=== PATIENT | female | born 1955 | race Caucasian/White ===

== ENCOUNTER → 2016-12-07 | Outpatient (CLI) | payer OTHER ==
--- NOTE | 2016-12-07 16:39 | BD ---
EXAMINATION TYPE: MG DEXA axial skeleton. DATE OF EXAM: 12/07/2016 COMPARISON: NONE CLINICAL HISTORY: 61-year-old female postmenopausal screening Height: 64 Weight: 282.7 FRAX RISK QUESTIONS: Alcohol (3 or more units per day): no Family History (Parent hip fracture): no Glucocorticoids (More than 3mos): no (Ex: prednisone, prednisolone, methylprednisolone, dexamethasone, and hydrocortisone). History of Fracture in Adulthood: yes Secondary Osteoporosis: 1. Type 1 Diabetes: no 2. Hyperthyroidism: no 3. Menopause before 45: yes 4. Malnutrition: no 5. Chronic liver disease: no Rheumatoid Arthritis: no Current Tobacco Use: no RISK FACTORS HISTORY OF: Hip Fracture (Right/Left): no Spine Fracture: no History of Wrist Fracture: no Surgery to Spine/Hip(right/left)/Wrist (right/left): no Family History of Osteoporosis: no Active: yes Diet low in dairy products/other sources of calcium: no Postmenopausal woman: hysterectomy age 30 Lost more than 2 inches in height since high school: no Frequent falls: no Poor Health: no Hyperparathyroidism: no Adrenal Insufficiency: no MEDICATIONS: Lipitor, acid reflux med Additional History: EXAM MEASUREMENTS: Bone mineral densitometry was performed using the [employer]. Bone mineral density as measured about the Lumbar spine is: ----- L1-L4(G/cm2): 1.195 T Score Values are as follows: ----- L2: -0.8 ----- L3: 0.3 ----- L4: 0.7 ----- L1-L4: 0.1 Bone mineral density has: increased 1.1 % since study of: 05.26.2013 Bone mineral density about the R hip (g/cm2): 0.966 Bone mineral density about the L hip (g/cm2): 1.066 T Score values are as follows: -----R Neck: -0.5 -----L Neck: -0.2 -----R Total: 0.2 -----L Total: 0.4 Bone mineral density has: increased1.0 % since study of: 13 IMPRESSION: Normal (Values between +1 and -1 indicate normal bone mass). Consider repeating this study in 5 year s or sooner if there is some new clinical indication. NOTE: T-SCORE=SD OF THE YOUNG ADULT MEAN.
--- NOTE | 2016-12-08 09:24 | MM ---
Reason for exam: screening (asymptomatic). Last mammogram was performed 1 year and 10 months ago. History: Patient is postmenopausal and is nulliparous. Family history of premenopausal breast cancer in sister at age 50. Physical Findings: A clinical breast exam by your physician is recommended on an annual basis and results should be correlated with mammographic findings. MG Screening Mammo w CAD Bilateral CC and MLO view(s) were taken. Prior study comparison: February 20, 2015, bilateral MG screening mammo w CAD. June 05, 2013, bilateral digital screening mammo w/CAD. The breast tissue is almost entirely fat. Benign calcifications. No significant changes when compared with prior studies. ASSESSMENT: Benign, BI-RAD 2 RECOMMENDATION: Routine screening mammogram of both breasts in 1 year.
== END | disposition home or self-care (01) ==
LOC: RADMAMWWP 14:32
PROVIDERS: ATTEND Family Medicine
DX: Z12.31 Encounter for screening mammogram for malignant neoplasm of breast (principal); Z78.0 Asymptomatic menopausal state
CPT/HCPCS: 77080; G0202

== ENCOUNTER → 2018-05-12 | Outpatient (CLI) | payer MEDICARE, OTHER ==
--- NOTE | 2018-05-15 11:46 | MM ---
Reason for exam: screening (asymptomatic). Last mammogram was performed 1 year and 5 months ago. History: Patient is postmenopausal and is nulliparous. Family history of premenopausal breast cancer in sister at age 50. Physical Findings: A clinical breast exam by your physician is recommended on an annual basis and results should be correlated with mammographic findings. MG 3D Screening Mammo W/Cad Bilateral CC, MLO, and XCCL view(s) were taken. Prior study comparison: December 07, 2016, bilateral MG screening mammo w CAD. February 20, 2015, bilateral MG screening mammo w CAD. There are scattered fibroglandular densities. Benign appearing bilateral calcifications. No significant changes when compared with prior studies. ASSESSMENT: Benign, BI-RAD 2 RECOMMENDATION: Routine screening mammogram of both breasts in 1 year.
== END | disposition home or self-care (01) ==
LOC: RADMAMWWP 07:14
PROVIDERS: ATTEND Family Medicine
DX: Z12.31 Encounter for screening mammogram for malignant neoplasm of breast (principal)
CPT/HCPCS: 77063; 77067

== ENCOUNTER → 2019-08-24 | Outpatient (CLI) | payer MEDICARE, OTHER ==
--- NOTE | 2019-08-24 13:46 | MM ---
Reason for exam: screening (asymptomatic). Last mammogram was performed 1 year and 3 months ago. History: Patient is postmenopausal and is nulliparous. Family history of premenopausal breast cancer in sister at age 50. Physical Findings: A clinical breast exam by your physician is recommended on an annual basis and results should be correlated with mammographic findings. MG 3D Screening Mammo W/Cad Bilateral CC, MLO, and XCCL view(s) were taken. Prior study comparison: May 12, 2018, bilateral MG 3d screening mammo w/cad. December 07, 2016, bilateral MG screening mammo w CAD. There are scattered fibroglandular densities. Benign appearing bilateral calcifications. No significant changes when compared with prior studies. ASSESSMENT: Benign, BI-RAD 2 RECOMMENDATION: Routine screening mammogram of both breasts in 1 year.
== END | disposition home or self-care (01) ==
LOC: RADMAMWWP 07:44
PROVIDERS: ATTEND Family Medicine
DX: Z12.31 Encounter for screening mammogram for malignant neoplasm of breast (principal)
CPT/HCPCS: 77063; 77067

== ENCOUNTER → 2020-08-28 | Outpatient (CLI) | payer MEDICARE ==
--- NOTE | 2020-09-01 11:20 | MM ---
Reason for exam: screening (asymptomatic). Last mammogram was performed 1 year ago. History: Patient is postmenopausal and is nulliparous. Family history of premenopausal breast cancer in sister at age 50. Physical Findings: A clinical breast exam by your physician is recommended on an annual basis and results should be correlated with mammographic findings. MG 3D Screening Mammo W/Cad Bilateral CC and MLO view(s) were taken. Prior study comparison: August 24, 2019, bilateral MG 3d screening mammo w/cad. May 12, 2018, bilateral MG 3d screening mammo w/cad. There are scattered fibroglandular densities. No significant changes when compared with prior studies. ASSESSMENT: Benign, BI-RAD 2 RECOMMENDATION: Routine screening mammogram of both breasts in 1 year.
== END | disposition home or self-care (01) ==
LOC: RADMAMWWP 07:45
PROVIDERS: ATTEND Family Medicine
DX: Z12.31 Encounter for screening mammogram for malignant neoplasm of breast (principal)
CPT/HCPCS: 77063; 77067

== ENCOUNTER → 2022-04-21 | Outpatient (CLI) | payer MEDICARE ==
--- NOTE | 2022-04-22 08:52 | MM ---
Reason for Exam: Screening (asymptomatic). Last mammogram was performed 1 year(s) and 8 month(s) ago. Patient History: Menarche at age 11. Patient has no children. Left ovary removed at age 30. Right ovary removed at age 30. Hysterectomy at age 30. Postmenopausal. Sister had breast cancer, age 50. Risk Values: Veronica 5 year model risk: 3.4%. NCI Lifetime model risk: 10.2%. Prior Study Comparison: 05/12/2018 Bilateral Screening Mammogram, [facility]. 08/24/2019 Bilateral Screening Mammogram, [facility]. 08/28/2020 Bilateral Screening Mammogram, [facility]. Tissue Density: There are scattered fibroglandular densities. Findings: Analyzed By CAD. There is no suspicious group of microcalcifications or new suspicious mass in either breast. Benign-appearing bilateral calcifications. No significant change from prior exams. Overall Assessment: Benign, BI-RAD 2 Management: Screening Mammogram of both breasts in 1 year. A clinical breast exam by your physician is recommended on an annual basis and results should be correlated with mammographic findings. Electronically signed and approved by: Maikel Harry D.O.
== END | disposition home or self-care (01) ==
LOC: RADMAMWWP 07:52
PROVIDERS: ATTEND Family Medicine
DX: Z12.31 Encounter for screening mammogram for malignant neoplasm of breast (principal); Z78.0 Asymptomatic menopausal state; Z80.3 Family history of malignant neoplasm of breast; Z90.721 Acquired absence of ovaries, unilateral
CPT/HCPCS: 77063; 77067

== ENCOUNTER → 2023-05-16 | Outpatient (CLI) | payer MEDICARE ==
--- NOTE | 2023-05-17 20:36 | MM ---
Reason for Exam: Screening (asymptomatic). Last mammogram was performed 1 year(s) and 1 month(s) ago. Patient History: Menarche at age 11. Patient has no children. Left ovary removed at age 30. Right ovary removed at age 30. Hysterectomy at age 30. Postmenopausal. Sister had breast cancer, age 50. Risk Values: Veronica 5 year model risk: 3.4%. NCI Lifetime model risk: 9.7%. Prior Study Comparison: 08/24/2019 Bilateral Screening Mammogram, [facility]. 08/28/2020 Bilateral Screening Mammogram, [facility]. 04/21/2022 Bilateral MG 3D screening mammo w/cad, [facility]. Tissue Density: The breast tissue is almost entirely fat. Findings: Analyzed By CAD. There is no suspicious group of microcalcifications or new suspicious mass in either breast. Overall Assessment: Negative, BI-RAD 1 Management: Screening Mammogram of both breasts in 1 year. See note below in regards to patient's increased 5 year Veronica score. Patient should continue monthly self-breast exams. A clinical breast exam by your physician is recommended on an annual basis. This exam should not preclude additional follow-up of suspicious palpable abnormalities. Note on Veronica scores and lifetime risk: 1. A Veronica score greater than 3% is considered moderate risk. If this is the case, consider specialist referral to assess eligibility for a risk reducing agent. 2. If overall lifetime risk for the development of breast cancer is 20% or higher, the patient may qualify for future screening with alternating mammogram and breast MRI. Electronically signed and approved by: Dino Villalta M.D. Radiologist
== END | disposition home or self-care (01) ==
LOC: RADMAMWWP 12:59
PROVIDERS: ATTEND Family Medicine
DX: Z12.31 Encounter for screening mammogram for malignant neoplasm of breast (principal); Z78.0 Asymptomatic menopausal state; Z80.3 Family history of malignant neoplasm of breast
CPT/HCPCS: 77063; 77067

== ENCOUNTER 2024-02-27 12:28 | Emergency (ER) | payer MEDICARE ==
[2024-02-27] MEDS: SODIUM CHLORIDE 0.9% 1,000 ML IV STA ×2 (13:37→16:57)
--- NOTE | 2024-02-27 13:48 | ED ---
General Adult HPI - General Chief complaint: Recheck/Abnormal Lab/Rx Stated complaint: Abnormal CT-sent by Dr Tan Seen by Provider: 02/27/24 13:15 Source: patient, RN notes reviewed, old records reviewed Mode of arrival: ambulatory Limitations: no limitations - History of Present Illness Initial comments: 68-year-old female who presents emergency department complaining of jaundice and skin itching. Patient has noticed bright yellow darker urine for the past month. For the past 7 to 10 days she has noticed her skin itching and then over the past 4 to 6 days she has noticed her eyes turning yellow and her skin becoming more yellow. Denies any abdominal pain over this period of time. Is a history of cholecystectomy. History of hyperlipidemia. Denies abdominal pain over this period of time. Denies chest pain, shortness of breath. Denies nausea or vomiting or diarrhea. Has no other acute complaints. Received workup with her PCP today including CT imaging of the abdomen pelvis as well as labs. Labs have not returned however she was contacted by her doctor, Dr. Decker who instructed to come to the emergency department over concern for biliary duct dilation and possible obstruction. Cholecystectomy was done many years ago. - Related Data Home Medications Medication Instructions Recorded Confirmed No Known Home Medications 02/27/24 02/27/24 Allergies Allergy/AdvReac Type Severity Reaction Status Date / Time Penicillins Allergy Unknown Verified 02/27/24 13:44 Childhood Review of Systems ROS Statement: Those systems with pertinent positive or pertinent negative responses have been documented in the HPI. Review of Systems: CONST: Denies fever EYES: Denies blurry vision ENT: Denies nasal congestion C/V: Denies Chest pain RESP: Denies shortness of breath GI: Denies abdominal pain : Denies dysuria SKIN: Endorses yellow skin, yellow eyes MSK: Denies joint pain. NEURO: Denies headache ROS Other: All systems not noted in ROS Statement are negative. Past Medical History Past Medical History: No Reported History History of Any Multi-Drug Resistant Organisms: None Reported Past Surgical History: Cholecystectomy, Hysterectomy, Orthopedic Surgery Additional Past Surgical History / Comment(s): left shoulder, right kneee Past Psychological History: No Psychological Hx Reported Smoking Status: Never smoker Past Alcohol Use History: None Reported Past Drug Use History: None Reported General Exam - General Exam Comments Initial Comments: General: Appears in no acute distress. HEAD: Normal with no signs of head trauma. EYES: Scleral icterus. PERRLA, EOMI.'s are 2 to 3 mm and equal bilaterally. ENT: Hearing grossly intact, normal oropharynx. RESPIRATORY: Clear breath sounds bilaterally. No wheezes, rales, or rhonchi. C/V: Regular rate and rhythm. S1 and S2 auscultated, no edema, peripheral pulses 2+ and intact throughout ABD: Abd is soft, nontender, nondistended EXT: Normal range of motion, no obvious deformity SKIN: Scleral icterus. Patient is jaundiced. Patient has pruritus over her body. NEURO: Alert and oriented x 4. No focal deficits. Limitations: no limitations Course Vital Signs 02/27/24 02/27/24 02/27/24 12:35 13:30 15:34 Temperature 97.9 F Pulse Rate 62 87 81 Respiratory 18 18 18 Rate Blood Pressure 150/80 131/56 135/55 O2 Sat by Pulse 98 96 95 Oximetry 02/27/24 02/27/24 17:05 18:25 Temperature 98.1 F Pulse Rate 77 Respiratory 18 18 Rate Blood Pressure 141/60 O2 Sat by Pulse 97 Oximetry Medical Decision Making - Medical Decision Making Was pt. sent in by a medical professional or institution (, PA, [employer], urgent care, hospital, or longterm...) When possible be specific @ -Sent in by PCP Dr. Decker for admission for further workup of the biliary obstructive process seen on CT. Did you speak to anyone other than the patient for history (EMS, parent, family, police, friend...)? What history was obtained from this source @ -No Did you review nursing and triage notes (agree or disagree)? Why? @ -I reviewed and agree with nursing and triage notes Were old charts reviewed (outside hosp., previous admission, EMS record, old EKG, old radiological studies, urgent care reports/EKG's, longterm records)? Report findings @ -Reviewed CT imaging results from earlier today. They are remarkable for showing severe intrahepatic and extrahepatic biliary duct dilation within enlarged bile duct up to 3.5 cm as well as main pancreatic duct dilation up to 8 mm. Unknown definitive etiology for the ductal dilation as they cannot rule out pancreatic head or ampullary mass or possible biliary stenosis. Cholecystectomy seen. Differential Diagnosis (chest pain, altered mental status, abdominal pain women, abdominal pain men, vaginal bleeding, weakness, fever, dyspnea, syncope, headache, dizziness, GI bleed, back pain, seizure, CVA, palpatations, mental health, musculoskeletal)? @ -Pancreatic mass, biliary dilation, bili obstruction, biliary stenosis, malignancy. This list is not all inclusive. EKG interpreted by me (3pts min.). @ -None done X-rays interpreted by me (1pt min.). @ -None done CT interpreted by me (1pt min.). @ -None done U/S interpreted by me (1pt. min.). @ -None done What testing was considered but not performed or refused? (CT, X-rays, U/S, labs)? Why? @ -Considered ultrasound of the gallbladder however patient has a history of a cholecystectomy done many years ago. Therefore this is not beneficial. Patient has all received CT imaging prior to arrival. What meds were considered but not given or refused? Why? @ -None Did you discuss the management of the patient with other professionals (professionals i.e. DrMauricio, PA, [employer], lab, RT, psych nurse, social services specialist, intellectual property lawyer, teacher, bank secrecy act officer, case consultant)? Give summary @ -Did discuss the case with our design lead, Dr. Schaffer who recommends transfer to a higher level of care to obtain possible ERCP but also EUS which is not offered at our facility. Recommended transfer to [facility]. The case with [facility]. Patient was accepted as an inpatient patient however bed availability is pending. Accepting physician is Dr. Corey Carrera. Transfer pending bed availability. Was smoking cessation discussed for >3mins.? @ -No Was critical care preformed (if so, how long)? @ -Yes, 34 minutes. Were there social determinants of health that impacted care today? How? (Homel essness, low income, unemployed, alcoholism, drug addiction, transportation, low edu. Level, literacy, decrease access to med. care, [facility], rehab)? @ -No Was there de-escalation of care discussed even if they declined (Discuss DNR or withdrawal of care, Hospice)? DNR status @ -No What co-morbidities impacted this encounter? (DM, HTN, Smoking, COPD, CAD, Cancer, CVA, ARF, Chemo, Hep., AIDS, mental health diagnosis, sleep apnea, morbid obesity)? @ -None Was patient admitted / discharged? Hospital course, mention meds given and route, prescriptions, significant lab abnormalities, going to OR and other pertinent info. @ -Patient presents with essentially painless jaundice. Has been having some symptoms of elevated bilirubin levels over the last month. Jaundice and scleral icterus has occurred over the last 4 to 5 days. Has no other acute complaints at this time. CT imaging done in the outpatient setting shows severe intrahepatic as well as pancreatic ductal dilation of unknown etiology with primary suspicion being possible mass versus obstruction of unknown etiology. Vital signs within acceptable limits. Gastroenterology Dr. Schaffer was rounding on other patients in the ER when the patient arrived and I did discuss the case with her as well as the imaging results and she recommended transfer to [facility] as EUS is not available at our facility. We will obtain abdominal laboratory studies. She will be given a 1 L fluid bolus. Plan discussed with the patient and she was in agreement the plan. Patient's labs are remarkable for elevated total bilirubin of 13.8 with conjugated bilirubin of 7.2 and unconjugated of 1.6. Elevated LFTs of 90 and 197 respectively with alk phos of 375. Lipase is also elevated to 1290. Patient has 3+ bilirubin's in the urine. We will reach out to [facility] for possible transfer for further workup with concern for possible pancreatic mass and need for EUS per our gastroenterology team.Patient was updated. She was in agreement with plan for transfer. I spoke with Dr. Corey Carrera at [facility] who accepted the patient however patient is waiting for an inpatient bed. Transfer pending availability of bed. Undiagnosed new problem with uncertain prognosis? @ -No Drug Therapy requiring intensive monitoring for toxicity (Heparin, Nitro, Insulin, Cardizem)? @ -No Were any procedures done? @ -No Diagnosis/symptom? @ -Hepatobiliary obstruction in a subacute setting of unknown etiology with concern for possible mass, pancreatitis Acute, or Chronic, or Acute on Chronic? @ -Subacute Uncomplicated (without systemic symptoms) or Complicated (systemic symptoms)? @ -Complicated Side effects of treatment? @ -None Exacerbation, Progression, or Severe Exacerbation] @ -No Poses a threat to life or bodily function? @ -Yes - Lab Data Result diagrams: 02/27/24 13:30 02/27/24 13:30 Lab Results 09/16/24 09/16/24 09/16/24 Range/Units 13:30 13:30 13:30 WBC 9.0 (3.8-10.6) k/uL RBC 4.23 (3.80-5.40) m/uL Hgb 12.8 (11.4-16.0) gm/dL Hct 40.6 (34.0-46.0) % MCV 95.9 (80.0-100.0) fL MCH 30.1 (25.0-35.0) pg MCHC 31.4 (31.0-37.0) g/dL RDW 15.1 (11.5-15.5) % Plt Count 192 (150-450) k/uL MPV 11.0 Neutrophils % 75 % Lymphocytes % 17 % Monocytes % 6 % Eosinophils % 1 % Basophils % 1 % Neutrophils # 6.7 (1.3-7.7) k/uL Lymphocytes # 1.5 (1.0-4.8) k/uL Monocytes # 0.5 (0-1.0) k/uL Eosinophils # 0.1 (0-0.7) k/uL Basophils # 0.1 (0-0.2) k/uL Large Platelets Present Hypochromasia Moderate PT 12.9 H (10.0-12.5) sec INR 1.2 H (<1.2) APTT 25.8 (22.0-30.0) sec Sodium 140 (137-145) mmol/L Potassium 3.7 (3.5-5.1) mmol/L Chloride 103 (98-107) mmol/L Carbon Dioxide 26 (22-30) mmol/L Anion Gap 11 mmol/L BUN 16 (7-17) mg/dL Creatinine 0.60 (0.52-1.04) mg/dL Est GFR (CKD-EPI)AfAm >90 (>60 ml/min/1.73 sqM) Est GFR (CKD-EPI)NonAf >90 (>60 ml/min/1.73 sqM) Glucose 202 H (74-99) mg/dL Calcium 9.6 (8.4-10.2) mg/dL Total Bilirubin 13.8 H (0.2-1.3) mg/dL Conjugated Bilirubin 7.2 H (0.0-0.3) mg/dL Unconjugated Bilirubin 1.6 H (0.0-1.1) mg/dL Delta Bilirubin 5.0 H (0.0-0.2) mg/dL AST 98 H (14-36) U/L ALT 197 H (4-34) U/L Alkaline Phosphatase 375 H (38-126) U/L Total Protein 6.5 (6.3-8.2) g/dL Albumin 3.9 (3.5-5.0) g/dL Amylase 93 (30-110) U/L Lipase 1290 H (23-300) U/L Urine Color Urine Appearance (Clear) Urine pH (5.0-8.0) Ur Specific [place] (1.001-1.035) Urine Protein (Negative) Urine Glucose (UA) (Negative) Urine Ketones (Negative) Urine Blood (Negative) Urine Nitrite (Negative) Urine Bilirubin (Negative) Urine Urobilinogen (<2.0) mg/dL Ur Leukocyte Esterase (Negative) Urine WBC (0-5) /hpf Ur Squamous Epith Cells (0-4) /hpf Urine Bacteria (None) /hpf Urine Mucus (None) /hpf 02/27/24 Range/Units 13:33 WBC (3.8-10.6) k/uL RBC (3.80-5.40) m/uL Hgb (11.4-16.0) gm/dL Hct (34.0-46.0) % MCV (80.0-100.0) fL MCH (25.0-35.0) pg MCHC (31.0-37.0) g/dL RDW (11.5-15.5) % Plt Count (150-450) k/uL MPV Neutrophils % % Lymphocytes % % Monocytes % % Eosinophils % % Basophils % % Neutrophils # (1.3-7.7) k/uL Lymphocytes # (1.0-4.8) k/uL Monocytes # (0-1.0) k/uL Eosinophils # (0-0.7) k/uL Basophils # (0-0.2) k/uL Large Platelets Hypochromasia PT (10.0-12.5) sec INR (<1.2) APTT (22.0-30.0) sec Sodium (137-145) mmol/L Potassium (3.5-5.1) mmol/L Chloride (98-107) mmol/L Carbon Dioxide (22-30) mmol/L Anion Gap mmol/L BUN (7-17) mg/dL Creatinine (0.52-1.04) mg/dL Est GFR (CKD-EPI)AfAm (>60 ml/min/1.73 sqM) Est GFR (CKD-EPI)NonAf (>60 ml/min/1.73 sqM) Glucose (74-99) mg/dL Calcium (8.4-10.2) mg/dL Total Bilirubin (0.2-1.3) mg/dL Conjugated Bilirubin (0.0-0.3) mg/dL Unconjugated Bilirubin (0.0-1.1) mg/dL Delta Bilirubin (0.0-0.2) mg/dL AST (14-36) U/L ALT (4-34) U/L Alkaline Phosphatase (38-126) U/L Total Protein (6.3-8.2) g/dL Albumin (3.5-5.0) g/dL Amylase (30-110) U/L Lipase (23-300) U/L Urine Color Dark Brown Urine Appearance Cloudy H (Clear) Urine pH 5.5 (5.0-8.0) Ur Specific [place] 1.025 (1.001-1.035) Urine Protein 1+ H (Negative) Urine Glucose (UA) 1+ H (Negative) Urine Ketones Trace H (Negative) Urine Blood Negative (Negative) Urine Nitrite Negative (Negative) Urine Bilirubin 3+ H (Negative) Urine Urobilinogen <2.0 (<2.0) mg/dL Ur Leukocyte Esterase Trace H (Negative) Urine WBC 2 (0-5) /hpf Ur Squamous Epith Cells 1 (0-4) /hpf Urine Bacteria Rare H (None) /hpf Urine Mucus Occasional H (None) /hpf Disposition Clinical Impression: Bile duct obstruction, Pancreatitis Disposition: OTHER INSTITUTION NOT DEFINED Condition: Serious Referrals: Jovon Decker MD [Primary Care Provider] - 1-2 days Time of Disposition: 16:00 - Out of Hospital Transfer - Req. Specs Out of Hospital Transfer - Requested Specifics: Other Non-Acute (Transferred to [facility] for escalation of care.)
[2024-02-27 13:53] LABS: Basophils # (A) 0.1 k/uL (0-0.2); Basophils % (A) 1 %; Eosinophils # (A) 0.1 k/uL (0-0.7); Eosinophils % (A) 1 %; HCT 40.6 % (34.0-46.0); HGB 12.8 gm/dL (11.4-16.0); Hypochromasia Moderate; Lymphocytes # (A) 1.5 k/uL (1.0-4.8); Lymphocytes % (A) 17 %; MCH 30.1 pg (25.0-35.0); MCHC 31.4 g/dL (31.0-37.0); MCV 95.9 fL (80.0-100.0); Monocytes # (A) 0.5 k/uL (0-1.0); Monocytes % (A) 6 %; Neutrophils # (A) 6.7 k/uL (1.3-7.7); Neutrophils % (A) 75 %; Platelet Count 192 k/uL (150-450); RBC 4.23 m/uL (3.80-5.40); RDW 15.1 % (11.5-15.5)
[2024-02-27 13:59] LABS: Appearance,Urine Cloudy (Clear); Bacteria,Urine Rare /hpf; Bilirubin,Urine 3+ (Negative); Blood,Urine Negative (Negative); Color,Urine Dark Brown; Glucose,Urine (UA) 1+ (Negative); Ketones,Urine Trace (Negative); Leukocyte Esterase,Urine Trace (Negative); Mucus,Urine Occasional /hpf; Nitrite,Urine Negative (Negative); PH, Urine 5.5 (5.0-8.0); Protein,Urine 1+ (Negative); Specific Gravity,Urine 1.025 (1.001-1.035); Squamous Epithelial Cell,Urine 1 /hpf (0-4); Urobilinogen,Urine <2.0 mg/dL (<2.0); WBC,Urine 2 /hpf (0-5)
[2024-02-27 14:05] LABS: ALT 197 U/L (4-34); AST 98 U/L (14-36); African American GFR (CKD) >90 (>60 ml/min/1.73 sqM); Albumin 3.9 g/dL (3.5-5.0); Alkaline Phosphatase 375 U/L (38-126); Amylase 93 U/L (30-110); Anion Gap 11 mmol/L; Bilirubin, Conjugated 7.2 mg/dL (0.0-0.3); Bilirubin,Unconjugated 1.6 mg/dL (0.0-1.1); Blood Urea Nitrogen 16 mg/dL (7-17); Calcium 9.6 mg/dL (8.4-10.2); Carbon Dioxide 26 mmol/L (22-30); Chloride 103 mmol/L (98-107); Glucose 202 mg/dL (74-99); Lipase 1290 U/L (23-300); Non-African American GFR(CKD) >90 (>60 ml/min/1.73 sqM); Potassium 3.7 mmol/L (3.5-5.1); Sodium 140 mmol/L (137-145); Total Bilirubin 13.8 mg/dL (0.2-1.3); Total Protein 6.5 g/dL (6.3-8.2)
[2024-02-27 14:20] LABS: INR 1.2 (<1.2); Partial Thromboplastin Time 25.8 sec (22.0-30.0); Prothrombin Time 12.9 sec (10.0-12.5)
[2024-02-27 14:52] LABS: Large Platelets Present
[2024-02-27] MEDS: diphenhydrAMINE 50 MG/ML 1 ML VIAL IVP STA ×2 (16:57→23:12)
[2024-02-27] MEDS: hydrOXYzine HCL 25 MG TAB PO STA (23:12)
[2024-02-28 08:38] LABS: HCT 37.8 % (34.0-46.0); Hypochromasia Slight; MCH 30.4 pg (25.0-35.0); MCHC 31.8 g/dL (31.0-37.0); MCV 95.4 fL (80.0-100.0); Mean Platelet Volume 10.5; Platelet Count 170 k/uL (150-450); RBC 3.96 m/uL (3.80-5.40); RDW 15.3 % (11.5-15.5); WBC 8.2 k/uL (3.8-10.6)
[2024-02-28 09:02] LABS: ALT 182 U/L (4-34); AST 100 U/L (14-36); African American GFR (CKD) >90 (>60 ml/min/1.73 sqM); Albumin 3.7 g/dL (3.5-5.0); Alkaline Phosphatase 354 U/L (38-126); Anion Gap 8 mmol/L; Blood Urea Nitrogen 12 mg/dL (7-17); Calcium 9.3 mg/dL (8.4-10.2); Carbon Dioxide 25 mmol/L (22-30); Chloride 105 mmol/L (98-107); Glucose 168 mg/dL (74-99); Magnesium 1.9 mg/dL (1.6-2.3); Non-African American GFR(CKD) >90 (>60 ml/min/1.73 sqM); Potassium 3.5 mmol/L (3.5-5.1); Sodium 138 mmol/L (137-145); Total Protein 6.3 g/dL (6.3-8.2)
--- NOTE | 2024-02-28 09:34 | P.CONS ---
History of Present Illness - Reason for Consult Consult date: 02/28/24 Medical Management Requesting physician: Enrique Holland - Chief Complaint jaundice - History of Present Illness History of Presenting Illness: Patient is a very pleasant 68-year-old female with a past medical history of hyperlipidemia and obesity with BMI of 41.9 kg/m.. She presented to the emergency department on 02/27/2024 secondary to concerns of jaundice discoloration and intractable itching. Patient reports that on , 02/23/2024 she began noticing some jaundice discoloration in her skin and on 02/24/2024 began noticing some yellowed discoloration of her eyes and darker urine. Patient reports she called her PCP and was instructed to stop taking her atorvastatin and all vitamin supplements and to follow-up in his office first thing on Tuesday. Patient states she did as instructed but the symptoms persisted along with intractable itchiness in her skin. Patient reports she was scratched so hard she would actually make herself bleed. She states upon arrival to her PCPs office, he pierce some labs and sent her for outpatient CT of abdomen and pelvis and instructed her to go straight to the emergency department for evaluation. Upon arrival to our facility, patient underwent evaluation in the emergency department. CBC was unremarkable. Coagulation profile showing elevated PT of 12.9 and INR of 1.2. BMP was unremarkable with the exception of hyperglycemia with glucose of 202 otherwise normal findings. Liver profile revealing hyperbilirubinemia with a total bili of 13.8, conjugated bilirubin of 7.2, unconjugated bilirubin of 1.6, delta bilirubin of 5.0, and transaminitis with AST of 98, ALT of 197, and alkaline phosphatase of 375. Lipase 1290 and CA 199 antigen was elevated at 4826. Urinalysis was positive for protein, glucose, and ketones with 3+ bilirubin. CT abdomen and pelvis without contrast completed just prior to arrival to the emergency department revealed severe intrahepatic and extrahepatic biliary ductal dilation with bile duct enlarged up to 3.5 cm and dilation of the main pancreatic duct up to 8 mm with a subtle pancreatic head or ampullary mass or biliary stenosis as possible considerations. Arrangements were made in the emergency department for ER to ER transfer and patient has been accepted to [facility] and currently awaiting bed assignment. We were consulted for medical management while patient awaiting transfer. Patient was seen and fully evaluated in ER room 3. She reports she cannot stop itching. She states other than that she feels great. She denies having any headache, lightheadedness, dizziness, chest pain, palpitations, shortness of breath, cough or congestion, abdominal pain or discomfort, decrease or changes in appetite, recent unintended weight loss, or noticing any swelling/weakness/tingling in her extremities. She states she has been having very dark-colored urine and itching uncontrollably. She reports these are the only changes that she has noticed other than the discoloration of her skin and eyes. Review of systems: Pertinent positives and negatives as discussed in HPI, a complete review of systems was performed and all other systems are negative. Physical exam: Vital signs reviewed and stable. Blood pressure 130/70, heart rate 70, respiratory rate 20, temp 98.0 F, and SpO2 of 98% on room air General: Nontoxic, no distress and appears stated age. Derm: Skin warm and dry, jaundice present. Head: Atraumatic, normocephalic and symmetric. Eyes: EOM's intact, no lid lag, varus present. Mouth: no lip lesions, mucus membranes moist Cardiovascular: regular rate and rhythm with normal S1S2, systolic murmur, positive posterior tibial pulses bilaterally, and cap refill < 2 seconds. Lungs: Respirations even, regular, and unlabored on room air. Lungs CTA bilaterally, no rhonchi, no rales, no wheezing, and no accessory muscle usage. Abdominal: soft, nontender to palpation, no guarding, no appreciable or ganomegaly Ext: ROM intact. No gross muscle atrophy, no edema, no contractures Neuro: Speech clear, face symmetrical and CN II-XII grossly intact with no noted focal neuro deficits Psych: Alert and oriented to person, place, time, and situation. Appropriate and pleasant affect. Assessment and Plan of Care: Hepatobiliary obstruction New onset jaundice and scleral icterus Hyperbilirubinemia with transaminitis, rule out choledocholithiasis vs obstruction from mass Intractable itching, secondary to above Elevated INR, secondary to above. Patient awaiting transfer to [facility] for evaluation by associate merchandiser for possible EUS. Per documentation in chart patient has been accepted by Dr. Corey Carrera. Will continue to closely monitor liver function levels while patient awaiting bed assignment. Order placed for Benadryl 25 mg IVP every 6 hours as needed for itching. Hold all hepatotoxic medications including Tylenol and atorvastatin. Orders placed for telemetry monitoring. Data and imaging reviewed: As stated above in HPI. Thank you for allowing us to participate in the care of this pleasant patient. Do not hesitate to contact us with questions. Someone can be reached from the [facility] hospitalist group all hours of the day at [phone] or via [employer]. Patient was seen independently by Nurse Practitioner. This document was prepared using [employer] dictation software. Please allow for errors in staff appraiser while rare they do occur. Fede Chiu NP rendered care for this patient independently, reviewed the findings and plan as documented in the note above. I did not physically speak with or examine the patient on this date Past Medical History Past Medical History: No Reported History History of Any Multi-Drug Resistant Organisms: None Reported Past Surgical History: Cholecystectomy, Hysterectomy, Orthopedic Surgery Additional Past Surgical History / Comment(s): left shoulder, right kneee Past Psychological History: No Psychological Hx Reported Smoking Status: Never smoker Past Alcohol Use History: None Reported Past Drug Use History: None Reported Medications and Allergies Home Medications Medication Instructions Recorded Confirmed Type No Known Home Medications 02/27/24 02/27/24 History Allergies Allergy/AdvReac Type Severity Reaction Status Date / Time Penicillins Allergy Unknown Verified 02/27/24 13:44 Childhood Physical Exam Vitals: Vital Signs Temp Pulse Resp BP Pulse Ox 02/28/24 06:04 97.7 F 65 16 131/77 97 02/28/24 03:54 74 16 128/66 97 02/27/24 22:37 97.8 F 68 16 138/92 97 02/27/24 18:25 98.1 F 77 18 141/60 97 02/27/24 17:05 18 02/27/24 15:34 81 18 135/55 95 02/27/24 13:30 87 18 131/56 96 02/27/24 12:35 97.9 F 62 18 150/80 98 Results CBC & Chem 7: 02/29/24 11:14 02/29/24 11:14 Labs: Abnormal Lab Results - Last 24 Hours (Table) 02/27/24 02/27/24 02/27/24 Range/Units 13:30 13:30 13:30 PT 12.9 H (10.0-12.5) sec INR 1.2 H (<1.2) Glucose 202 H (74-99) mg/dL Total Bilirubin 13.8 H (0.2-1.3) mg/dL Conjugated Bilirubin 7.2 H (0.0-0.3) mg/dL Unconjugated Bilirubin 1.6 H (0.0-1.1) mg/dL Delta Bilirubin 5.0 H (0.0-0.2) mg/dL AST 98 H (14-36) U/L ALT 197 H (4-34) U/L Alkaline Phosphatase 375 H (38-126) U/L Lipase 1290 H (23-300) U/L CA 19-9 Antigen 4826.0 H (0.0-34.9) U/mL Urine Appearance (Clear) Urine Protein (Negative) Urine Glucose (UA) (Negative) Urine Ketones (Negative) Urine Bilirubin (Negative) Ur Leukocyte Esterase (Negative) Urine Bacteria (None) /hpf Urine Mucus (None) /hpf 02/27/24 Range/Units 13:33 PT (10.0-12.5) sec INR (<1.2) Glucose (74-99) mg/dL Total Bilirubin (0.2-1.3) mg/dL Conjugated Bilirubin (0.0-0.3) mg/dL Unconjugated Bilirubin (0.0-1.1) mg/dL Delta Bilirubin (0.0-0.2) mg/dL AST (14-36) U/L ALT (4-34) U/L Alkaline Phosphatase (38-126) U/L Lipase (23-300) U/L CA 19-9 Antigen (0.0-34.9) U/mL Urine Appearance Cloudy H (Clear) Urine Protein 1+ H (Negative) Urine Glucose (UA) 1+ H (Negative) Urine Ketones Trace H (Negative) Urine Bilirubin 3+ H (Negative) Ur Leukocyte Esterase Trace H (Negative) Urine Bacteria Rare H (None) /hpf Urine Mucus Occasional H (None) /hpf
[2024-02-28] MEDS: diphenhydrAMINE 50 MG/ML 1 ML VIAL IVP PRN (12:17)
[2024-02-29 11:55] LABS: HCT 38.3 % (34.0-46.0); HGB 12.2 gm/dL (11.4-16.0); Hypochromasia Marked; MCH 30.7 pg (25.0-35.0); MCHC 31.8 g/dL (31.0-37.0); MCV 96.4 fL (80.0-100.0); Platelet Count 158 k/uL (150-450); RBC 3.97 m/uL (3.80-5.40); RDW 15.3 % (11.5-15.5); WBC 6.5 k/uL (3.8-10.6)
[2024-02-29 12:05] LABS: ALT 159 U/L (4-34); AST 92 U/L (14-36); African American GFR (CKD) >90 (>60 ml/min/1.73 sqM); Albumin 3.6 g/dL (3.5-5.0); Alkaline Phosphatase 366 U/L (38-126); Anion Gap 11 mmol/L; Blood Urea Nitrogen 12 mg/dL (7-17); Calcium 9.5 mg/dL (8.4-10.2); Carbon Dioxide 26 mmol/L (22-30); Chloride 102 mmol/L (98-107); Glucose 238 mg/dL (74-99); Magnesium 1.9 mg/dL (1.6-2.3); Non-African American GFR(CKD) >90 (>60 ml/min/1.73 sqM); Potassium 3.5 mmol/L (3.5-5.1); Sodium 139 mmol/L (137-145); Total Bilirubin 14.5 mg/dL (0.2-1.3); Total Protein 6.1 g/dL (6.3-8.2)
--- NOTE | 2024-02-29 16:06 | P.PN ---
Subjective Progress Note Date: 02/29/24 Hospital course:: Patient is a very pleasant 68-year-old female with a past medical history of hyperlipidemia and obesity with BMI of 41.9 kg/m.. She presented to the emergency department on 02/27/2024 secondary to concerns of jaundice discoloration and intractable itching. Patient reports that on , 02/23/2024 she began noticing some jaundice discoloration in her skin and on 02/24/2024 began noticing some yellowed discoloration of her eyes and darker urine. Patient reports she called her PCP and was instructed to stop taking her atorvastatin and all vitamin supplements and to follow-up in his office first thing on Tuesday. Patient states she did as instructed but the symptoms persisted along with intractable itchiness in her skin. Patient reports she was scratched so hard she would actually make herself bleed. She states upon arrival to her PCPs office, he pierce some labs and sent her for outpatient CT of abdomen and pelvis and instructed her to go straight to the emergency department for evaluation. Upon arrival to our facility, patient underwent evaluation in the emergency department. CBC was unremarkable. Coagulation profile showing elevated PT of 12.9 and INR of 1.2. BMP was unremarkable with the exception of hyperglycemia with glucose of 202 otherwise normal findings. Liver profile revealing hyperbilirubinemia with a total bili of 13.8, conjugated bilirubin of 7.2, unconjugated bilirubin of 1.6, delta bilirubin of 5.0, and transaminitis with AST of 98, ALT of 197, and alkaline phosphatase of 375. Lipase 1290 and CA 199 antigen was elevated at 4826. Urinalysis was positive for protein, glucose, and ketones with 3+ bilirubin. CT abdomen and pelvis without contrast completed just prior to arrival to the e mergency department revealed severe intrahepatic and extrahepatic biliary ductal dilation with bile duct enlarged up to 3.5 cm and dilation of the main pancreatic duct up to 8 mm with a subtle pancreatic head or ampullary mass or biliary stenosis as possible considerations. Arrangements were made in the emergency department for ER to inpatient transfer and patient has been accepted to [facility] and currently awaiting bed assignment. We were consulted by ED physician for medical management while patient is awaiting transfer. Physical exam: Patient was seen and fully evaluated at bedside. She continues to report intermittent itchiness but states Benadryl is controlling as ordered. She continues to deny having any pain or discomfort. She is sitting on edge of bed visiting with family at bedside. Patient continues to await transfer to [facility]. She denies having any further questions, needs, concerns, or complaints at this time. Discussed laboratory findings and imaging results in detail with patient and family and all questions answered at this time. Vital signs reviewed and stable. Blood pressure 134/65, heart rate 66, respiratory rate 16, temp 98.6 F, and SpO2 of 96% on room air. General: Nontoxic, no distress and appears stated age. Derm: Skin warm and dry, jaundice present. Head: Atraumatic, normocephalic and symmetric. Eyes: EOM's intact, no lid lag, varus present. Mouth: no lip lesions, mucus membranes moist Cardiovascular: regular rate and rhythm with normal S1S2, systolic murmur, positive posterior tibial pulses bilaterally, and cap refill < 2 seconds. Lungs: Respirations even, regular, and unlabored on room air. Lungs CTA bilaterally, no rhonchi, no rales, no wheezing, and no accessory muscle usage. Abdominal: soft, nontender to palpation, no guarding, no appreciable organomegaly Ext: ROM intact. No gross muscle atrophy, no edema, no contractures Neuro: Speech clear, face symmetrical and CN II-XII grossly intact with no noted focal neuro deficits Psych: Alert and oriented to person, place, time, and situation. Appropriate and pleasant affect. Assessment and Plan of Care: Hepatobiliary obstruction New onset jaundice and scleral icterus Hyperbilirubinemia with transaminitis, rule out choledocholithiasis vs o bstruction from mass Intractable itching, secondary to above Elevated INR, secondary to above. Patient awaiting transfer to [facility] for evaluation by drywall sander for possible EUS. Per documentation in chart patient has been accepted by Dr. Corey Carrera. Will continue to closely monitor liver function levels while patient awaiting bed assignment. Continue Benadryl 25 mg IVP every 6 hours as needed for itching. Order placed for repeat morning labs including CBC, CMP, coagulation profile, and bilirubin fractions. Hold all hepatotoxic medications including Tylenol and atorvastatin. Continue telemetry monitoring. Data and imaging reviewed: Morning labs reviewed. CBC remains unremarkable. BMP showing hyperglycemia with glucose of 238 otherwise normal findings. Magnesium 1.9. Liver profile showing persistent hyperbilirubinemia with total bili of 14.5 and transaminitis with AST of 92, ALT of 159, and alkaline phosphatase of 366. Vital signs reviewed. Blood pressure 134/65, heart rate 66, respiratory rate 16, temp 98.6 F, and SpO2 of 96% on room air. Thank you for allowing us to participate in the care of this pleasant patient. Do not hesitate to contact us with questions. Someone can be reached from the [facility] hospitalist group all hours of the day at [phone] or via [employer]. Patient was seen independently by Nurse Practitioner. This document was prepared using [employer] dictation software. Please allow for errors in field staff while rare they do occur. Fede Chiu NP rendered care for this patient independently, reviewed the findings and plan as documented in the note above. I did not physically speak with or examine the patient on this date Objective - Vital Signs Vital signs: Vital Signs Temp 98.6 F 02/29/24 08:06 Pulse 66 02/29/24 08:06 Resp 16 02/29/24 08:06 BP 134/65 02/29/24 08:06 Pulse Ox 96 02/29/24 08:06 FiO2 - Labs CBC & Chem 7: 02/29/24 11:14 02/29/24 11:14 Labs: Abnormal Lab Results - Last 24 Hours (Table) 02/28/24 Range/Units 08:32 Glucose 168 H (74-99) mg/dL Total Bilirubin 14.0 H (0.2-1.3) mg/dL AST 100 H (14-36) U/L ALT 182 H (4-34) U/L Alkaline Phosphatase 354 H (38-126) U/L
[2024-03-01 01:24] VITALS: RESP 18
[2024-03-01 06:56] LABS: INR 1.8 (<1.2); Partial Thromboplastin Time 28.9 sec (22.0-30.0); Prothrombin Time 17.9 sec (10.0-12.5)
[2024-03-01 07:06] LABS: ALT 132 U/L (4-34); AST 82 U/L (14-36); African American GFR (CKD) >90 (>60 ml/min/1.73 sqM); Albumin 3.2 g/dL (3.5-5.0); Alkaline Phosphatase 315 U/L (38-126); Anion Gap 6 mmol/L; Bilirubin, Conjugated 6.6 mg/dL (0.0-0.3); Bilirubin,Unconjugated 1.7 mg/dL (0.0-1.1); Blood Urea Nitrogen 11 mg/dL (7-17); Calcium 9.1 mg/dL (8.4-10.2); Carbon Dioxide 25 mmol/L (22-30); Chloride 104 mmol/L (98-107); Glucose 144 mg/dL (74-99); Magnesium 1.8 mg/dL (1.6-2.3); Non-African American GFR(CKD) >90 (>60 ml/min/1.73 sqM); Potassium 3.2 mmol/L (3.5-5.1); Sodium 135 mmol/L (137-145); Total Bilirubin 13.3 mg/dL (0.2-1.3); Total Bilirubin 13.6 mg/dL (0.2-1.3); Total Protein 5.6 g/dL (6.3-8.2)
[2024-03-01] MEDS: POTASSIUM CHLORIDE ER 20 MEQ TAB.ER PO STA (10:49)
--- NOTE | 2024-03-01 13:50 | P.PN ---
Subjective Progress Note Date: 03/01/24 Hospital course:: Patient is a very pleasant 68-year-old female with a past medical history of hyperlipidemia and obesity with BMI of 41.9 kg/m.. She presented to the emergency department on 02/27/2024 secondary to concerns of jaundice discoloration and intractable itching. Patient reports that on , 02/23/2024 she began noticing some jaundice discoloration in her skin and on 02/24/2024 began noticing some yellowed discoloration of her eyes and darker urine. Patient reports she called her PCP and was instructed to stop taking her atorvastatin and all vitamin supplements and to follow-up in his office first thing on Tuesday. Patient states she did as instructed but the symptoms persisted along with intractable itchiness in her skin. Patient reports she was scratched so hard she would actually make herself bleed. She states upon arrival to her PCPs office, he pierce some labs and sent her for outpatient CT of abdomen and pelvis and instructed her to go straight to the emergency department for evaluation. Upon arrival to our facility, patient underwent evaluation in the emergency department. CBC was unremarkable. Coagulation profile showing elevated PT of 12.9 and INR of 1.2. BMP was unremarkable with the exception of hyperglycemia with glucose of 202 otherwise normal findings. Liver profile revealing hyperbilirubinemia with a total bili of 13.8, conjugated bilirubin of 7.2, unconjugated bilirubin of 1.6, delta bilirubin of 5.0, and transaminitis with AST of 98, ALT of 197, and alkaline phosphatase of 375. Lipase 1290 and CA 199 antigen was elevated at 4826. Urinalysis was positive for protein, glucose, and ketones with 3+ bilirubin. CT abdomen and pelvis without contrast completed just prior to arrival to the e mergency department revealed severe intrahepatic and extrahepatic biliary ductal dilation with bile duct enlarged up to 3.5 cm and dilation of the main pancreatic duct up to 8 mm with a subtle pancreatic head or ampullary mass or biliary stenosis as possible considerations. Arrangements were made in the emergency department for ER to inpatient transfer and patient has been accepted to [facility] and currently awaiting bed assignment. We were consulted by ED physician for medical management while patient is awaiting transfer. Physical exam: Patient was seen and fully evaluated at bedside. She reports moderate itching this morning. Patient and her family at bedside also expressing extreme frustration regarding weight for transfer and further testing. [facility] transfer center was called regarding update on bed status and we were informed she is still on a waiting list for a bed and it is discharge dependent on when bed will become available. Patient and her family were updated and are contemplating whether or not they will be leaving AMA and driving themselves to another facility. Patient and family encouraged to await transfer, and reassured that their frustration on wait time is understandable. Patient continues to deny having any abdominal pain or further complaints at this time. Vital signs reviewed and stable. Blood pressure 136/64, heart rate 98, respiratory rate 18, temp 98.2 F, and SpO2 of 98% on room air. General: Nontoxic, no distress and appears stated age. Derm: Skin warm and dry, jaundice present. Head: Atraumatic, normocephalic and symmetric. Eyes: EOM's intact, no lid lag, varus present. Mouth: no lip lesions, mucus membranes moist Cardiovascular: regular rate and rhythm with normal S1S2, systolic murmur, positive posterior tibial pulses bilaterally, and cap refill < 2 seconds. Lungs: Respirations even, regular, and unlabored on room air. Lungs CTA bilaterally, no rhonchi, no rales, no wheezing, and no accessory muscle usage. Abdominal: soft, nontender to palpation, no guarding, no appreciable organomegaly Ext: ROM intact. No gross muscle atrophy, no edema, no contractures Neuro: Speech clear, face symmetrical and CN II-XII grossly intact with no noted focal neuro deficits Psych: Alert and oriented to person, place, time, and situation. Appropriate and pleasant affect. Assessment and Plan of Care: Hepatobiliary obstruction New onset jaundice and scleral icterus Hyperbilirubinemia with transaminitis, rule out choledocholithiasis vs obstruction from mass Intractable itching, secondary to above Elevated INR, secondary to above. Patient awaiting transfer to [facility] for evaluation by director peoplesoft for possible EUS. Per documentation in chart patient has been accepted by Dr. Corey Carrera. Will continue to closely monitor liver function levels while patient awaiting bed assignment. Continue Benadryl 25 mg IVP every 6 hours as needed for itching. Order placed for repeat morning labs including CBC, CMP, coagulation profile, and bilirubin fractions. Hold all hepatotoxic medications including Tylenol and atorvastatin. Continue telemetry monitoring. Hypokalemia -Potassium 3.2 order placed for K-Dur 40 mEq p.o. x 1 dose. Data and imaging reviewed: Morning labs reviewed. BMP showing hyperglycemia with glucose of 144 hypokalemia with potassium of 3.2, otherwise normal findings. Magnesium 1.8. Liver profile showing persistent transaminitis with hyperbilirubinemia with total bili of 13.6, conjugated bilirubin of 6.6, unconjugated bilirubin of 1.7, delta bilirubin of 5.0, AST 82, ALT 132, and alkaline phosphatase of 315. Vital signs reviewed. Blood pressure 136/64, heart rate 98, respiratory rate 18, temp 98.2 F, and SpO2 of 98% on room air. Thank you for allowing us to participate in the care of this pleasant patient. Do not hesitate to contact us with questions. Someone can be reached from the [facility] hospitalist group all hours of the day at [phone] or via [employer]. Patient was seen independently by Nurse Practitioner. This document was prepared using [employer] dictation software. Please allow for errors in patient observer while rare they do occur. I reviewed the documentation as provided by the VALERIE above, who is the original author of this note. I agree with the documented assessment and plan, with the following changes: none Objective - Vital Signs Vital signs: Vital Signs Temp 98.2 F 03/01/24 06:35 Pulse 98 03/01/24 08:09 Resp 18 03/01/24 08:09 BP 136/64 03/01/24 08:09 Pulse Ox 98 03/01/24 08:09 FiO2 - Labs CBC & Chem 7: 03/01/24 15:30 03/01/24 06:37 Labs: Abnormal Lab Results - Last 24 Hours (Table) 02/29/24 03/01/24 03/01/24 Range/Units 11:14 06:37 06:37 PT (10.0-12.5) sec INR (<1.2) Sodium 135 L (137-145) mmol/L Potassium 3.2 L (3.5-5.1) mmol/L Glucose 238 H 144 H (74-99) mg/dL Total Bilirubin 14.5 H 13.3 H 13.6 H (0.2-1.3) mg/dL Conjugated Bilirubin 6.6 H (0.0-0.3) mg/dL Unconjugated Bilirubin 1.7 H (0.0-1.1) mg/dL Delta Bilirubin 5.0 H (0.0-0.2) mg/dL AST 92 H 82 H (14-36) U/L ALT 159 H 132 H (4-34) U/L Alkaline Phosphatase 366 H 315 H (38-126) U/L Total Protein 6.1 L 5.6 L (6.3-8.2) g/dL Albumin 3.2 L (3.5-5.0) g/dL 03/01/24 Range/Units 06:37 PT 17.9 H (10.0-12.5) sec INR 1.8 H (<1.2) Sodium (137-145) mmol/L Potassium (3.5-5.1) mmol/L Glucose (74-99) mg/dL Total Bilirubin (0.2-1.3) mg/dL Conjugated Bilirubin (0.0-0.3) mg/dL Unconjugated Bilirubin (0.0-1.1) mg/dL Delta Bilirubin (0.0-0.2) mg/dL AST (14-36) U/L ALT (4-34) U/L Alkaline Phosphatase (38-126) U/L Total Protein (6.3-8.2) g/dL Albumin (3.5-5.0) g/dL
--- NOTE | 2024-03-01 15:04 | P.CONS ---
History of Present Illness - Reason for Consult Consult date: 03/01/24 Hepatobiliary obstruction Requesting physician: Fede Chiu - Chief Complaint Jaundice - History of Present Illness This a pleasant 68-year-old female who started noticing dark urine about a month ago. The past 7 to 10 days prior to coming into the hospital she had noticed that her skin was turning yellow and she was getting itching. Also reported pale stools. She went to see her primary care physician and he had ordered a CAT scan of the abdomen. She was called at home and told to come to the emergency department due to the CT findings. She was noted to have hy perbilirubinemia with elevated LFTs and CAT scan with reported severe intrahepatic and extrahepatic biliary duct dilation with dilated bile duct up to 3.5 cm and pancreatic head or ampullary mass. Gastroenterology was initially contacted and was recommended to do an ER to ER transfer to tertiary center for ERCP with EUS. Apparently patient was accepted however has been waiting for bed for 3 days now therefore gastroenterology was consulted for further evaluation. The patient denies any abdominal pain, no nausea or vomiting. Patient continues with elevated bilirubin and LFTs. Lipase 1290 on admission and CA 19-9 4826. Review of Systems REVIEW OF SYSTEMS: CARDIOPULMONARY: No chest pain or shortness of breath. Gastrointestinal: No abdominal pain. No nausea or vomiting. No hematemesis, coffee-ground emesis. No rectal bleeding, or melena. GENITOURINARY: No dysuria or hematuria. Dark urine. MUSCULOSKELETAL: Reports normal range of motion. SKIN: No rashes. Jaundice. Pruritus. ENDOCRINE: No chills, fevers. No excessive weight gain or loss. No polydipsia or polyuria. PSYCHIATRIC: Unremarkable. NEUROLOGY: No change in mental status. Denies dizziness, headache. ENT: Vision unremarkable. CONSTITUTIONAL: No recent weight loss. No fever, chills, night sweats. Past Medical History Past Medical History: No Reported History History of Any Multi-Drug Resistant Organisms: None Reported Past Surgical History: Cholecystectomy, Hysterectomy, Orthopedic Surgery Additional Past Surgical History / Comment(s): left shoulder, right kneee Past Psychological History: No Psychological Hx Reported Smoking Status: Never smoker Past Alcohol Use History: None Reported Past Drug Use History: None Reported Medications and Allergies Home Medications Medication Instructions Recorded Confirmed Type No Known Home Medications 02/27/24 02/27/24 History Allergies Allergy/AdvReac Type Severity Reaction Status Date / Time Penicillins Allergy Unknown Verified 02/27/24 13:44 Childhood Physical Exam Vitals: Vital Signs Temp Pulse Resp BP Pulse Ox 03/01/24 14:17 97.4 F L 70 18 144/67 95 03/01/24 08:09 98 18 136/64 98 03/01/24 08:00 98 18 136/64 98 03/01/24 06:35 98.2 F 66 18 136/64 97 03/01/24 01:22 73 18 138/69 96 02/29/24 22:20 98.4 F 81 16 153/76 99 02/29/24 19:43 98.1 F 82 16 133/74 97 02/29/24 15:50 97.7 F 81 18 150/62 95 General appearance: The patient is alert, oriented, appears in no acute distress. HET: Head is normocephalic and atraumatic. Conjunctiva pink. Sclera icteric. Neck: Supple without lymphadenopathy. Trachea midline. Heart: Regular. Lungs: Equal expansion, normal respiratory effort. Abdomen: Soft, nontender, nondistended. Skin: No rashes. Jaundice. Extremities: Normal skin color and turgor. No pedal edema. Neurological: No focal deficits. Alert and oriented x3. Results CBC & Chem 7: 02/29/24 11:14 03/01/24 06:37 Labs: Abnormal Lab Results - Last 24 Hours (Table) 03/01/24 03/01/24 03/01/24 Range/Units 06:37 06:37 06:37 PT 17.9 H (10.0-12.5) sec INR 1.8 H (<1.2) Sodium 135 L (137-145) mmol/L Potassium 3.2 L (3.5-5.1) mmol/L Glucose 144 H (74-99) mg/dL Total Bilirubin 13.3 H 13.6 H (0.2-1.3) mg/dL Conjugated Bilirubin 6.6 H (0.0-0.3) mg/dL Unconjugated Bilirubin 1.7 H (0.0-1.1) mg/dL Delta Bilirubin 5.0 H (0.0-0.2) mg/dL AST 82 H (14-36) U/L ALT 132 H (4-34) U/L Alkaline Phosphatase 315 H (38-126) U/L Total Protein 5.6 L (6.3-8.2) g/dL Albumin 3.2 L (3.5-5.0) g/dL Comments: CT abdomen pelvis without contrast reports severe intrahepatic and extrahepatic biliary ductal dilation. Bile duct is enlarged up to 3.5 cm. Also appears to be dilation of the main pancreatic duct up to 8 mm. A subtle pancreatic head or ampullary mass or biliary stenosis are considerations. Not well-appreciated on the current exam. Correlate with tumor markers, ERCP and/or EUS as clinically indicated. Patient's status post Lucretia cystectomy. Sigmoid diverticulosis without acute diverticulitis. Assessment and Plan (1) Obstructive jaundice Narrative/Plan: 68-year-old female presents for new onset jaundice 7 to 10 days ago after seeing her PCP with CT evidence of biliary dilation, concerns for pancreatic head or ampullary mass with elevated bilirubin and LFTs. Labs are consistent with cholestatic pattern with concerns for. Obstruction. CA 19-9 tumor marker elevated with possible pancreatic head or ampullary mass. Recommendations for further evaluation with ERCP and EUS for biopsy. Recommendation was for a transfer from ER to ER to tertiary center with advanced gastroenterology and endoscopic evaluation with EUS. Patient currently waiting for bed for transfer to [facility]. Other possibilities can be considered as discharged with outpatient follow-up. We will reevaluate on a day-to-day basis. Status: Acute Code(s): K83.1 - OBSTRUCTION OF BILE DUCT SNOMED Code(s): 12500953 (2) Dilation of biliary tract Status: Acute Code(s): K83.8 - OTHER SPECIFIED DISEASES OF BILIARY TRACT SNOMED Code(s): 530004258 (3) Transaminitis Status: Acute Code(s): R74.01 - ELEVATION OF LEVELS OF LIVER TRANSAMINASE LEVELS SNOMED Code(s): 237100681 (4) Hyperbilirubinemia Status: Acute Code(s): E80.6 - OTHER DISORDERS OF BILIRUBIN METABOLISM SNOMED Code(s): 38585499 (5) Elevated CA 19-9 level Status: Acute Code(s): R97.8 - OTHER ABNORMAL TUMOR MARKERS SNOMED Code(s): 78319916019415836 (6) Pancreatitis Status: Acute Code(s): K85.90 - ACUTE PANCREATITIS WITHOUT NECROSIS OR INFECTION, UNSP SNOMED Code(s): 60426805 Plan: 1. Continue symptomatic and supportive care 2. Diet as tolerated 3. Daily CBC, CMP 4. Recommend transfer to tertiary center with advanced water tender for ERCP with EUS for biopsy Thank you for this consultation, we will continue to follow Dr. Lyn Schaffer I agree with the dictator's note, documented as a scribe by Willa Bailey.
[2024-03-01 15:39] LABS: HGB 12.6 gm/dL (11.4-16.0); Hypochromasia Slight; MCH 29.8 pg (25.0-35.0); MCHC 31.6 g/dL (31.0-37.0); MCV 94.4 fL (80.0-100.0); Mean Platelet Volume 10.9; Platelet Count 161 k/uL (150-450); RBC 4.24 m/uL (3.80-5.40); RDW 15.6 % (11.5-15.5); WBC 7.7 k/uL (3.8-10.6)
[2024-03-02 01:53] VITALS: BP 143/63; PULSE 81; TEMP 97.6
== END 2024-03-02 01:54 | disposition other institution (70) ==
LOC: EC 12:28
DX: Z00.00 Encounter for general adult medical examination without abnormal findings
CPT/HCPCS: 36415; 80053; 81001; 82150; 82248; 83690; 83735; 85025; 85027; 85610; 85730; 86301; 96361; 96374; 96376; 99285

== ENCOUNTER → 2024-02-27 | Outpatient (CLI) | payer MEDICARE ==
--- NOTE | 2024-02-27 10:49 | CT ---
EXAMINATION TYPE: CT abdomen pelvis wo con DATE OF EXAM: 02/27/2024 COMPARISON: None HISTORY: 68-year-old female R1 [address] DLP: 1237 mGycm. Automated exposure control for dose reduction was used. TECHNIQUE: Contiguous axial scanning of the abdomen and pelvis without IV contrast. Coronal and sagit jayme reconstructions performed. FINDINGS: The heart is normal size. Partially visualized right main pulmonary artery shows mildly enlarged dusty dianelys to 2.6 cm. This may reflect underlying pulmonary hypertension. Mild emphysematous change noted in the lower lungs. Tiny hiatal hernia. There is severe intrahepatic and extrahepatic biliary ductal dilatation. The bile duct measures up to 3.5 cm. Hypodense lesion posterior right liver lobe measures 1.8 cm favored to represent a cyst. No clear distal obstructing lesion is seen. However, there appears to be some dilatation of the main pancreatic duct as well up to 8 mm. Gallbladder surgically absent. And adrenal glands and spleen within normal limits. There is a 2.3 cm parapelvic cyst left kidney and a vague cortical hypodensity measuring 1.6 cm right kidney probably additional cyst. No hydronephrosis on either side. No dilated small bowel, free fluid, or free air. No mesenteric or retroperitoneal lymphadenopathy. Mild overall stool burden. Lower descending and sigmoid colonic diverticulosis. No pericolonic inflam matory change. Bladder only partially distended. Uterus surgically absent. Neither ovary is identified. No abnormal fluid collection in the pelvis or pelvic lymphadenopathy. A few pelvic phleboliths are noted. Bones: [facility] mid and lower thoracic spine. Moderate degenerative disc disease L5-S1. Hypertrophic face t arthropathy mid to lower lumbar spine. IMPRESSION: 1. Severe intrahepatic and extra hepatic biliary ductal dilatation. The bile duct is enlarged up to 3.5 cm. There also appears to be dilatation of the main pancreatic duct up to 8 mm. A subtle pancreat ic head or ampullary mass or biliary stenosis are considerations. Not well appreciated on the current exam. Correlate with tumor markers, ERCP, and/or EUS as clinically indicated. 2. Patient status post cholecystectomy. 3. Sigmoid diverticulosis without acute diverticulitis. [facility], Workstation: [email or web address], 02/27/2024 10:46 AM
== END | disposition home or self-care (01) ==
LOC: RADCTMAIN 10:07
PROVIDERS: ATTEND Family Medicine
DX: R17 Unspecified jaundice
CPT/HCPCS: 74176

== ENCOUNTER 2024-03-20 12:50 | Day surgery (SDC) | payer MEDICARE ==
[~2024-03-20 12:50] MED LIST: HYDROmorphone 0.5 MG/0.5 ML SYRINGE IVP PRN; MIDAZOLAM 2 MG/2 ML VIAL IV PRN; Pre Op ABX Message 1 EACH MISC MISCELLANE ONE
[2024-03-20 13:13] VITALS: TEMP 97.9
[2024-03-20] MEDS: IV FLUID CONTINUATION 1,000 ML IV ONE (13:14)
[2024-03-20 13:30] LABS: Glucose,Whole Blood 139 mg/dL (70-110)
[2024-03-20] MEDS: LACTATED RINGERS 1,000 ML IV SCH (13:33)
[2024-03-20] MEDS: ONDANSETRON 4 MG/2 ML VIAL IVP ONE (13:33)
[2024-03-20] MEDS: DEXAMETHASONE SOD PHOSPHATE 4 MG/ML 1 ML VIAL IV ONE (13:34)
[2024-03-20 14:00] LABS: African American GFR (CKD) >90 (>60 ml/min/1.73 sqM); Anion Gap 6 mmol/L; Blood Urea Nitrogen 12 mg/dL (7-17); Calcium 9.6 mg/dL (8.4-10.2); Carbon Dioxide 25 mmol/L (22-30); Chloride 108 mmol/L (98-107); Glucose 132 mg/dL (74-99); Non-African American GFR(CKD) >90 (>60 ml/min/1.73 sqM); Sodium 139 mmol/L (137-145)
[2024-03-20 14:06] LABS: Potassium 4.1 mmol/L (3.5-5.1)
[2024-03-20] MEDS: SODIUM CHLORIDE 0.9% 100 ML with ceFAZolin 2 GM IV ONE (14:14)
[2024-03-20] MEDS ORDERED: LIDOCAINE 1% INJ 10MG/ML (20 ML MDV) ONE (15:09)
[2024-03-20] MEDS ORDERED: MIDAZOLAM 2 MG/2 ML VIAL ONE (15:09)
[2024-03-20] MEDS ORDERED: PROPOFOL 10 MG/ML 20 ML VIAL IV ONE (15:09)
[2024-03-20] MEDS ORDERED: ceFAZolin 1 GM/50 ML BAG (PMX) ONE (15:09)
[2024-03-20] MEDS ORDERED: KETAMINE HCL IN 0.9 % NACL 50 MG/5 ML SYRINGE ONE (15:09)
[2024-03-20] MEDS ORDERED: fentaNYL (PF) 50 MCG/ML 2 ML AMP ONE (15:09)
[2024-03-20] MEDS: LIDOCAINE 1%-EPI 1:100,000 20 ML VIAL SQ ONE (15:38)
--- NOTE | 2024-03-20 16:25 | P.OP ---
Date of Procedure: 03/20/24 Preoperative Diagnosis: Pancreatic cancer Postoperative Diagnosis: Pancreatic cancer Procedure(s) Performed: MediPort placement with fluoroscopy Anesthesia: MAC Surgeon: Negra Lockwood Pathology: none sent Condition: stable Disposition: same day Indications for Procedure: 68-year-old female presents with recent diagnosis of pancreatic cancer. After discussion with oncology, patient has decided on chemotherapy induction. Mediport is being placed for this purpose. Risks, benefits and alternatives w ere presented to the patient including risk of bleeding, pneumothorax and infection. Consent was provided prior to attending the operating suite. Operative Findings: Appropriate flush and withdrawal from Mediport site Description of Procedure: Patient was brought to the operative suite and placed in supine position on the operating table. Sedation was provided anesthesia. Patient was then prepped and draped in regular sterile fashion. Introducer needle was placed in the subclavian vein was accessed on first attempt. Guidewire was then placed and noted to be in appropriate position under fluoroscopic guidance. Local anesthetic was administered and incision was made to create the pocket. Once appropriate pocket was cleared, dilator sheath was placed over the guidewire and catheter was introduced. Catheter was placement was reviewed under fluoroscopic guidance and noted to be in appropriate position. This was then secured to the port. The port was secured to the prepectoralis fascia using 2-0 Prolene suture. Appropriate flush and withdrawal was noted with normal saline and heparin lock was placed. Wound was then closed in layers with 3-0 Vicryl and 4- 0 Vicryl subcuticular suture. Patient was awakened in the operative suite and taken to postanesthesia care unit in stable condition. Chest x-ray is pending.
--- NOTE | 2024-03-20 16:48 | FL ---
EXAMINATION TYPE: FL guided central line placemt DATE OF EXAM: 03/20/2024 FLUOROSCOPY Port-a-cath. 9 secs fl. 29.52 cgy. No images provided. Patient with history of pancreatic cancer. [facility], , 03/20/2024 4:45 PM
[2024-03-20 16:51] VITALS: BP 119/64; PULSE 80; RESP 16
--- NOTE | 2024-03-20 16:59 | XR ---
EXAMINATION TYPE: XR chest 1V portable DATE OF EXAM: 03/20/2024 Comparison: None Clinical History: 68-year-old female Mediport Placement Findings: Right anterior chest wall injection port with subclavian access and catheter tip near the expected br achiocephalic vein confluence. No appreciable pneumothorax. Heart is mildly enlarged. Mild interstiti al prominence may be technical. Suture anchors left humeral head. No jovanni consolidation or pleural e ffusion. Impression: 1. Right anterior chest wall injection port. Catheter tip near the expected brachiocephalic vein conf luence. 2. Mild interstitial prominence may be technical. Correlate to exclude mild pulmonary vascular conges tion. [facility], , 03/20/2024 4:57 PM
== END 2024-03-20 17:56 | disposition home or self-care (01) ==
LOC: OR 12:50
PROVIDERS: ATTEND Surgery
CPT/HCPCS: 71045; 77001; 80048

== ENCOUNTER → 2024-07-13 | Day surgery (SDC) | payer MEDICARE ==
[2024-07-13 09:05] VITALS: PULSE 95; RESP 16; TEMP 96.7
[2024-07-13] MEDS: IOPAMIDOL-370 100ML BTL INJ ONE (10:05)
[2024-07-13] MEDS: ALTEPLASE 2 MG VIAL (CATHFLO) MISCELLANE ONE (10:05)
--- NOTE | 2024-07-13 10:13 | P.OP ---
Date of Procedure: 07/13/24 Description of Procedure: Preoperative diagnosis: Malfunctioning port Postoperative diagnosis: Same Procedure: Access of port, fluoroscopic assisted portogram, pharmacal thrombolysis with 2 mg tPA Surgeon: Loretta Casanova D.O. EBL: Less than 5 cc IV fluids: Not measured Urine output: Not measured Drains: None Complications: None immediately apparent stable Condition: Operative indication and findings: Patient is a 69-year-old female undergoing chemo who has a port. She states that is unable to aspirate well, typically they instill some tPA for about 10 minutes and then able to get blood flow. They have always had the benefit of being able to flush the area. Plan for portogram. Risk and benefits discussed. She seems understand. Procedure in detail: Patient was brought to the special suite and placed in supine position. The right chest and port were prepped and draped in usual sterile fashion. Initial x-ray was performed showing coiling of the port more proximally likely prior to insertion of the subclavian vein with the distal end of the port at the proximal subclavian/brachiocephalic vein. The port was accessed. There was some difficulty with aspiration but did flushed easily A portogram was performed showing anarea of fibrin sheath at the distal portion therefore this time a decision was made to instill 2 mg of tPA into the port and allow it to dwell. This is then further flushed and a Hep-Lock was placed at the port site. . It may continue to be used as long as it continues to flush given its location. If there are continued concerns, would need to be replaced. Patient seemingly understands the plan and is willing to proceed.
[2024-07-13 10:34] VITALS: BP 133/65
--- NOTE | 2024-07-13 11:07 | IR ---
EXAMINATION TYPE: IR CVA DEVICE CHECK WITH FLUOROSCOPY DATE OF EXAM: 07/13/2024 COMPARISON: Pre Operative Images if available both CT/MRI or plain film CLINICAL INDICATION: Female, 69 years old with history of Port-A-Cath gram, 0.2 minutes fluoroscopy; TECHNIQUE: IR CVA DEVICE CHECK WITH FLUOROSCOPY, multiple fluoroscopic images provided for procedure. Total fluoroscopy time: 2.2 minutes Total submitted images to PACS: [id number] DAP: 0.5109 Gycm2 FINDINGS: Right chest wall port catheter gram with contrast following a distal tip of the port. IMPRESSION: 1. Report was generated for administrative purposes only. 2. Please see the operative/procedural note for further details. [facility], , 07/13/2024 11:04 AM
== END ==
LOC: CATHCVL 08:27
PROVIDERS: ATTEND Surgery
DX: T82.519A Breakdown (mechanical) of unspecified cardiac and vascular devices and implants, initial encounter (principal); C25.0 Malignant neoplasm of head of pancreas; E78.5 Hyperlipidemia, unspecified; G99.0 Autonomic neuropathy in diseases classified elsewhere; Z71.3 Dietary counseling and surveillance; Z88.0 Allergy status to penicillin; Z79.899 Other long term (current) drug therapy
CPT/HCPCS: 36598; 36593; J2997; Q9967

== ENCOUNTER → 2024-09-07 | Outpatient (CLI) | payer MEDICARE ==
--- NOTE | 2024-09-07 10:08 | PE ---
EXAMINATION TYPE: PET CT fusion skull to thigh DATE OF EXAM: 09/07/2024 COMPARISON: Prior CT abdomen and pelvis February 17, [id number] HISTORY: Pancreatic cancer diagnosed February 2024 treated with chemotherapy through July. TECHNIQUE: Following the intravenous administration of 11.53 mCi of F-18 FDG, whole body images are performed from the skull base to the midthigh. Images are reviewed on the computer in the coronal, a xial, and sagittal planes. Reconstructed rotating images are created on independent workstation and reviewed on the computer. A localization and attenuation correction CT is performed in conjunction with the PET scan. Blood glucose level was 142 SCAN: Subsequent Scan FINDINGS: SKULL BASE AND NECK: No areas of abnormal hypermetabolic uptake. CHEST, MEDIASTINUM, AND HILAR REGION: No areas of abnormal hypermetabolic uptake. ABDOMEN AND PELVIS: There is new metallic internal biliary stent which is presumed patent as there is new pneumobilia. Improved biliary dilatation is noted from prior CT. There is more prominent heterogeneous pancreatic body mass measuring approximately 7.0 x 3.9 cm on i mage 137 with abnormal hypermetabolic uptake, max SUV is 12.78 along the posterior aspect on image 13 4. No distal ductal dilatation is noted. No additional areas of abnormal hypermetabolic uptake identified. Mild nonspecific bowel uptake is pr esent. Normal excretion is seen. OSSEOUS STRUCTURES: No areas of abnormal hypermetabolic uptake. OTHER CT: There is new right subclavian Mediport catheter terminating before the brachiocephalic conf luence. No significant coronary calcification. There is new small right pleural effusion. Stable 2.1 cm simple appearing thin-walled cyst in the posterior right hepatic lobe axial image 130. Uterus is surgically absent. IMPRESSION: More prominent central pancreatic mass with abnormal hypermetabolic uptake corresponds to known neoplasm. No suspicious adjacent adenopathy or distal metastatic disease is noted. [facility], , 09/07/2024 10:06 AM
== END | disposition home or self-care (01) ==
LOC: RADPETMAIN 07:57
PROVIDERS: ATTEND Internal Medicine Hematology & Oncology
DX: C25.0 Malignant neoplasm of head of pancreas (principal); J90 Pleural effusion, not elsewhere classified; Z90.710 Acquired absence of both cervix and uterus
CPT/HCPCS: 78815; A9552

== ENCOUNTER 2024-12-07 11:12 | Inpatient (IN) | payer MEDICARE ==
--- NOTE | 2024-12-07 12:19 | ED ---
General Adult HPI - General Source: patient, RN notes reviewed Mode of arrival: wheelchair Limitations: no limitations <Arcelia Molina - Last Filed: 12/07/24 12:17> <Curtis Alvarado - Last Filed: 12/07/24 15:01> - General Chief complaint: Nausea/Vomiting/Diarrhea Stated complaint: Vomiting Time Seen by Provider: 12/07/24 12:10 - History of Present Illness Initial comments: Quick note: 69-year-old female with history of pancreatic cancer presents to the emergency department for evaluation of nausea and vomiting. Patient notes that over the past 5 to 6 days she has had difficulty tolerating p.o. intake. She d oes note that she was recently diagnosed with C. difficile and has been taking oral vancomycin for this. Denies any fever, chills, abdominal pain. (Arcelia Molina) Dictation was produced using [employer] dictation software. please excuse any grammatical, word or spelling errors. Chief Complaint: 69-year-old female with weakness, diarrhea nausea vomiting. History of pancreatic cancer History of Present Illness: 69-year-old female history pancreatic cancer. Got hemotherapy to treat pancreatic cancer. Most recent was 2 weeks ago. Patient with total of 2-3 treatments. Patient states that they recently transitioned her to the stronger chemotherapy medications. Denies any fever. Patient currently on vancomycin for presumed C. difficile. The ROS documented in this emergency department record has been reviewed and confirmed by me. Those systems with pertinent positive or negative responses have been documented in the HPI. All other systems are other negative and/or noncontributory. (Curtis Alvarado) - Related Data Home Medications Medication Instructions Recorded Confirmed No Known Home Medications 07/10/24 07/13/24 Allergies Allergy/AdvReac Type Severity Reaction Status Date / Time Penicillins Allergy Unknown Verified 12/07/24 11:20 Childhood Review of Systems ROS Other: All systems not noted in ROS Statement are negative. <Arcelia Molina - Last Filed: 12/07/24 12:17> ROS Other: All systems not noted in ROS Statement are negative. <Curtis Alvarado - Last Filed: 12/07/24 15:01> ROS Statement: Those systems with pertinent positive or pertinent negative responses have been documented in the HPI. Past Medical History Past Medical History: Cancer, GERD/Reflux Additional Past Medical History / Comment(s): recent dx pancreatic cancer. jaundice before dx (02/25/24/) History of Any Multi-Drug Resistant Organisms: None Reported Past Surgical History: Cholecystectomy, Hysterectomy, Orthopedic Surgery Additional Past Surgical History / Comment(s): left shoulder tendons, right knee replaced Past Anesthesia/Blood Transfusion Reactions: Postoperative Nausea & Vomiting (PONV) Past Psychological History: No Psychological Hx Reported Smoking Status: Never smoker Past Alcohol Use History: None Reported Past Drug Use History: None Reported - Past Family History Father Family Medical History: Cancer Additional Family Medical History / Comment(s): lung and brain cancer Sister(s) Family Medical History: Cancer Additional Family Medical History / Comment(s): colon cancer, with mets. another sister colon cancer. <Arcelia Molina - Last Filed: 12/07/24 12:17> General Exam Limitations: no limitations <Arcelia Molina - Last Filed: 12/07/24 12:17> <Curtis Alvarado - Last Filed: 12/07/24 15:01> - General Exam Comments Initial Comments: Visual Physical Exam Vital signs reviewed General: Well-appearing, nontoxic, no acute distress. Head: Normocephalic, atraumatic Eyes: PERRLA, EOMI ENT: Airway patent Chest: Nonlabored breathing Skin: No visual rash, normal skin tone Neuro: Alert and oriented 3 Musculoskeletal: No gross abnormalities (Arcelia Molina) PHYSICAL EXAM: General Impression: Alert and oriented x3, malaised HEENT: Normocephalic atraumatic, extra-ocular movements intact, pupils equal and reactive to light bilaterally, dry mucous membrane Cardiovascular: Heart regular rate and rhythm Chest: Able to complete full sentences, no retractions, no tachypnea Abdomen: abdomen soft, non-tender, non-distended, no organomegaly Musculoskeletal: Pulses present and equal in all extremities, no peripheral edema Motor: no focal deficits noted Neurological: CN II-XII grossly intact, no focal motor or sensory deficits noted Skin: Intact with no visualized rashes Psych: Normal affect and mood (Curtis Alvarado) Course Vital Signs 12/07/24 12/07/24 11:17 14:17 Temperature 97.6 F Pulse Rate 105 H 77 Respiratory 20 16 Rate Blood Pressure 91/62 101/59 O2 Sat by Pulse 97 98 Oximetry Medical Decision Making <Arcelia Molina - Last Filed: 12/07/24 12:17> - Lab Data Result diagrams: 12/07/24 12:37 12/07/24 12:37 <Curtis Alvarado - Last Filed: 12/07/24 15:01> - Medical Decision Making Quick note preformed and electronically signed by Arcelia Molina PA-C (Arcelia Molina) Was pt. sent in by a medical professional or institution (DEYA Corbett, WHEEL LOADER OPERATOR, urgent care, hospital, or senior living...) When possible be specific @ -No Did you speak to anyone other than the patient for history (EMS, parent, family, police, friend...)? What history was obtained from this source @ - at the bedside as described above Did you review nursing and triage notes (agree or disagree)? Why? @ -I reviewed and agree with nursing and triage notes Were old charts reviewed (outside hosp., previous admission, EMS record, old EKG, old radiological studies, urgent care reports/EKG's, senior living records)? Report findings @ -No old charts were reviewed Differential Diagnosis (chest pain, altered mental status, abdominal pain women, abdominal pain men, vaginal bleeding, musculoskeletal, weakness, fever, dyspnea, syncope, headache, dizziness, GI bleed, back pain, seizure, CVA, palpatations, mental health)? @ -Enteritis, bacterial enteritis, chemo induced enteritis EKG interpreted by me (3pts min.). @ - X-rays interpreted by me (1pt min.). @ -Abdominal x-ray shows no acute processes CT interpreted by me (1pt min.). @ -None done U/S interpreted by me (1pt. min.). @ -None done What testing was considered but not performed or refused? (CT, X-rays, U/S, labs)? Why? @ -None What meds were considered but not given or refused? Why? @ -None Was smoking cessation discussed for >3mins.? @ -No Were there social determinants of health that impacted care today? How? (Homelessness, low income, unemployed, alcoholism, drug addiction, transportation, low edu. Level, literacy, decrease access to med. care, [facility], rehab)? @ -No Was there de-escalation of care discussed even if they declined (Discuss DNR or withdrawal of care, Hospice)? DNR status @ -No What co-morbidities impacted this encounter? (DM, HTN, Smoking, COPD, CAD, Cancer, CVA, ARF, Chemo, Hep., AIDS, mental health diagnosis, sleep apnea, morbid obesity)? @ -Pancreatic cancer undergoing chemotherapy Was patient admitted / discharged? Hospital course, mention meds given and route, prescriptions, significant lab abnormalities, going to OR and other p ertinent info. @ -69-year-old female presents emergency department with nausea vomiting diarrhea. No abdominal pain. Vital signs shows soft blood pressure. Responding to fluids. Patient malaise at the bedside with dry mucous membranes. Laboratory evaluation shows leukocytosis 17.23 apparently being treated for C. difficile. Likely leukocytosis from leukemoid reaction from enteritis. Metabo lic panel shows dehydration. Given patient's current clinical condition she will be admitted consultation to oncology. Case discussed with hospitalist for admission Did you discuss the management of the patient with other professionals (professionals i.e. , PA, WHEEL LOADER OPERATOR, lab, RT, psych nurse, social media intern, music video producer, teacher, chief program officer, case management social worker)? Give summary @ -See above Was critical care preformed (if so, how long)? @ -No Undiagnosed new problem with uncertain prognosis? @ -No Drug Therapy requiring intensive monitoring for toxicity (Heparin, Nitro, Insulin, Cardizem)? @ -No Were any procedures done? @ -No Diagnosis/symptom? Acute, or Chronic, or Acute on Chronic? Uncomplicated (without systemic symptoms) or Complicated (systemic symptoms)? @ -Dehydration, chemotherapy induced enteritis Side effects of treatment? @ -No Exacerbation, Progression, or Severe Exacerbation? @ -No Poses a threat to life or bodily function? How? (Chest pain, USA, GA, pneumonia, PE, COPD, DKA, ARF, appy, cholecystitis, CVA, Diverticulitis, Homicidal, Suicidal, threat to staff... and all critical care pts) @ -yes (Curtis Alvarado) - Lab Data Lab Results 12/07/24 12/07/24 Range/Units 12:37 12:37 WBC 17.23 H (4.50-10.00) 10*3/uL RBC 3.95 L (4.10-5.20) 10*6/uL Hgb 11.3 L (12.0-15.0) g/dL Hct 33.8 L (37.2-46.3) % MCV 85.6 (80.0-97.0) fL MCH 28.6 (27.0-32.0) pg MCHC 33.4 (32.0-37.0) g/dL Plt Count 406 (140-440) 10*3/uL MPV 12.3 H (9.5-12.2) fL Immature Gran % (Auto) 0.4 % Neutrophils % 82.4 % Lymphocytes % 10.7 % Monocytes % 6.0 % Eosinophils % 0.0 % Basophils % 0.5 % Immature Gran # 0.07 H (0.00-0.04) 10*3/uL Neutrophils # 14.18 H (1.80-7.70) 10*3/uL Lymphocytes # 1.85 (0.90-5.00) 10*3/uL Monocytes # 1.04 H (0.20-1.00) 10*3/uL Eosinophils # 0.00 L (0.04-0.35) 10*3/uL Basophils # 0.09 (0.00-0.10) 10*3/uL Immature Plt Fraction 9.2 H (1.1-6.1) % Sodium 134 L (137-145) mmol/L Potassium 3.5 (3.5-5.1) mmol/L Chloride 81 L (98-107) mmol/L Carbon Dioxide 33 H (22-30) mmol/L Anion Gap 20 mmol/L BUN 46 H (7-17) mg/dL Creatinine 1.72 H (0.52-1.04) mg/dL Est GFR (CKD-EPI)AfAm 34 (>60 ml/min/1.73 sqM) Est GFR (CKD-EPI)NonAf 30 (>60 ml/min/1.73 sqM) Glucose 162 H (74-99) mg/dL Calcium 9.5 (8.4-10.2) mg/dL Total Bilirubin 1.6 H (0.2-1.3) mg/dL AST 31 (14-36) U/L ALT 20 (4-34) U/L Alkaline Phosphatase 438 H (38-126) U/L Total Protein 7.9 (6.3-8.2) g/dL Albumin 4.2 (3.5-5.0) g/dL Lipase 140 (23-300) U/L Disposition <Arcelia Molina - Last Filed: 12/07/24 12:17> Decision Time: 15:01 <Curtis Alvarado - Last Filed: 12/07/24 15:01> Clinical Impression: Enteritis Disposition: ADMITTED IP TO THIS HOSP Condition: Fair Referrals: Jovon Decker MD [Primary Care Provider] - 1-2 days
[2024-12-07] MEDS: SODIUM CHLORIDE 0.9% 1,000 ML IV STA (12:46)
[2024-12-07 12:48] LABS: Basophils # (A) 0.09 10*3/uL (0.00-0.10); Basophils % (A) 0.5 %; Eosinophils # (A) 0.00 10*3/uL (0.04-0.35); Eosinophils % (A) 0.0 %; HCT 33.8 % (37.2-46.3); HGB 11.3 g/dL (12.0-15.0); Immature Platelet Fraction 9.2 % (1.1-6.1); Lymphocytes # (A) 1.85 10*3/uL (0.90-5.00); Lymphocytes % (A) 10.7 %; MCH 28.6 pg (27.0-32.0); MCHC 33.4 g/dL (32.0-37.0); MCV 85.6 fL (80.0-97.0); Monocytes # (A) 1.04 10*3/uL (0.20-1.00); Monocytes % (A) 6.0 %; Neutrophils # (A) 14.18 10*3/uL (1.80-7.70); Neutrophils % (A) 82.4 %; Platelet Count 406 10*3/uL (140-440); RBC 3.95 10*6/uL (4.10-5.20); RDW 17.1 % (11.5-14.5); WBC 17.23 10*3/uL (4.50-10.00)
[2024-12-07 13:07] LABS: ALT 20 U/L (4-34); African American GFR (CKD) 34 (>60 ml/min/1.73 sqM); Albumin 4.2 g/dL (3.5-5.0); Anion Gap 20 mmol/L; Blood Urea Nitrogen 46 mg/dL (7-17); Calcium 9.5 mg/dL (8.4-10.2); Carbon Dioxide 33 mmol/L (22-30); Chloride 81 mmol/L (98-107); Glucose 162 mg/dL (74-99); Lipase 140 U/L (23-300); Non-African American GFR(CKD) 30 (>60 ml/min/1.73 sqM); Sodium 134 mmol/L (137-145); Total Protein 7.9 g/dL (6.3-8.2)
[2024-12-07 13:10] LABS: AST 31 U/L (14-36); Alkaline Phosphatase 438 U/L (38-126); Potassium 3.5 mmol/L (3.5-5.1)
--- NOTE | 2024-12-07 14:17 | XR ---
EXAMINATION TYPE: XR abdomen 1V DATE OF EXAM: 12/07/2024 2:07 PM COMPARISON: None CLINICAL INDICATION: Female, 69 years old with history of gurgling chest; TECHNIQUE: One radiographic view of the abdomen was obtained. FINDINGS: Stent noted in the right upper quadrant. Cholecystectomy clips present.: The bowel gas mario wilbert is nonspecific without dilated loops of small or large bowel. . Fecal material and gas are demons trated throughout the colon and rectum. There is no evidence for organomegaly or pneumoperitoneum. N o acute osseous process. No abnormal calcifications are present. IMPRESSION: Nonspecific bowel gas pattern without radiographic evidence for acute process. [facility], , 12/07/2024 2:15 PM
[2024-12-07] MEDS: METOCLOPRAMIDE 5 MG/ML 2 ML VIAL IVP STA (14:29)
[2024-12-07] MEDS ORDERED: NALOXONE 0.4 MG/ML 1 ML VIAL IV PRN (14:57)
[2024-12-07] MEDS: SODIUM CHLORIDE 0.9% 1,000 ML IV SCH (15:18)
[2024-12-07] MEDS ORDERED: MELATONIN 3 MG TABLET PO PRN (17:40)
[2024-12-07] MEDS ORDERED: ACETAMINOPHEN TAB 325 MG TAB PO PRN (17:40)
--- NOTE | 2024-12-07 17:52 | P.HPIM ---
History of Present Illness H&P Date: 12/07/24 69 year old F with PMH of pancreatic CA presents to the ED. She reports undergoing chemotherapy approximately 3 weeks ago. Over the past 5 days she reports intractable nausea and profuse vomiting associated with decreased PO intake. She reports "gurgling" in her chest. She reports difficulty swallowing with food that seems to get stuck in her throat. She reports coughing up white foam. She had profound diarrhea 10 days ago, C. diff was positive, just finished taking 10 days of PO Vancomycin. In the ED she underwent extensive evaluation. BP 91/62, HR 105, T 97.6F, RR 20, 97% on RA. CBC, Coag panel, CMP significant for WBC 17.23, RBC 3.95, Hg 11.3, Hct 33.8, Na 134, Cl 81, bicarb 33, BUN 46, Cr 1.72, glu 162, T. Bili 1.6, alk phos 438. KUB no acute process. EKG sinus rhythm with RBBB. Patient is admitted for further workup and management. General: non toxic, no distress, appears at stated age Derm: warm, dry Head: atraumatic, normocephalic, symmetric Eyes: EOMI, no lid lag, anicteric sclera Mouth: no lip lesion, mucus membranes moist Cardiovascular: S1S2 tachy, no murmur Lungs: Decreased BS bilateral, no rhonchi, no rales , no accessory muscle use Ext: no gross muscle atrophy, no edema, no contractures Neuro: no focal neuro deficits Psych: Alert, oriented, appropriate affect Based on my assessment of this patient, this patient meets a high complexity level of care. SIRS: Obtain BCx + UA. No signs of active infection. Possibly reactive. Hold antibiotics. Monitor fever profile. Intractable N/V: Gastritis versus side effect of chemo. IV hydration as below. Zofran 4 mg IV TID PRN. Protonix 40 mg IV BID. Consult GI. Dysphagia: Consult GI for possible EGD. HypoCl hypoNa with metabolic alkalosis and AJAY likely due to dehydration: Start NS at 75 cc/hr. Hyperbilirubinemia and elevated alk phos possibly related to underlying pancreatic malignancy Normocytic anemia: Unknown etiology. No signs of active bleeding. Monitor. CODE STATUS: NO CODE DVT Prophylaxis: Lovenox. GI Prophylaxis: Protonix IV Designated medical POA if patient is not able to make medical decisions for t hemselves: I have reviewed the following regional engagement consultant notes: ED note I have reviewed the results of the following tests: As above. I have ordered the following tests: As above. I have discussed the care of this patient with the following independent historian: Family. I have independently interpreted the following test below: I have discussed the management of this patient with the following physician: ED provider. Past Medical History Past Medical History: Cancer, GERD/Reflux Additional Past Medical History / Comment(s): recent dx pancreatic cancer. jaundice before dx (02/25/24) History of Any Multi-Drug Resistant Organisms: None Reported Past Surgical History: Cholecystectomy, Hysterectomy, Orthopedic Surgery Additional Past Surgical History / Comment(s): left shoulder tendons, right knee replaced Past Anesthesia/Blood Transfusion Reactions: Postoperative Nausea & Vomiting (PONV) Past Psychological History: No Psychological Hx Reported Smoking Status: Never smoker Past Alcohol Use History: None Reported Past Drug Use History: None Reported - Past Family History Father Family Medical History: Cancer Additional Family Medical History / Comment(s): lung and brain cancer Sister(s) Family Medical History: Cancer Additional Family Medical History / Comment(s): colon cancer, with mets. another sister colon cancer. Medications and Allergies Home Medications Medication Instructions Recorded Confirmed Type Ferrous Sulfate [Feosol] 325 mg PO DAILY 12/07/24 12/07/24 History Omeprazole 40 mg PO BID 12/07/24 12/07/24 History Ondansetron Odt [Zofran Odt] 4 mg PO BID 12/07/24 12/07/24 History Vancomycin HCl [Vancomycin HCl 500 mg PO QID 12/07/24 12/07/24 History Oral Soln] droNABinol 5 mg PO HS 12/07/24 12/07/24 History polyethylene glycoL 3350 [Miralax] 17 gm PO DAILY PRN 12/07/24 12/07/24 History Allergies Allergy/AdvReac Type Severity Reaction Status Date / Time Penicillins Allergy Unknown Verified 12/07/24 15:38 Childhood Physical Exam Vitals: Vital Signs Temp Pulse Resp BP Pulse Ox 12/07/24 14:17 77 16 101/59 98 12/07/24 11:17 97.6 F 105 H 20 91/62 97 Intake and Output 12/07/24 12/07/2425 06:59 14:59 22:59 Other: Weight 61.235 kg Results CBC & Chem 7: 12/07/24 12:37 12/07/24 12:37 Labs: Abnormal Lab Results - Last 24 Hours (Table) 12/07/24 12/07/24 Range/Units 12:37 12:37 WBC 17.23 H (4.50-10.00) 10*3/uL RBC 3.95 L (4.10-5.20) 10*6/uL Hgb 11.3 L (12.0-15.0) g/dL Hct 33.8 L (37.2-46.3) % MPV 12.3 H (9.5-12.2) fL Immature Gran # 0.07 H (0.00-0.04) 10*3/uL Neutrophils # 14.18 H (1.80-7.70) 10*3/uL Monocytes # 1.04 H (0.20-1.00) 10*3/uL Eosinophils # 0.00 L (0.04-0.35) 10*3/uL Immature Plt Fraction 9.2 H (1.1-6.1) % Sodium 134 L (137-145) mmol/L Chloride 81 L (98-107) mmol/L Carbon Dioxide 33 H (22-30) mmol/L BUN 46 H (7-17) mg/dL Creatinine 1.72 H (0.52-1.04) mg/dL Glucose 162 H (74-99) mg/dL Total Bilirubin 1.6 H (0.2-1.3) mg/dL Alkaline Phosphatase 438 H (38-126) U/L
[2024-12-07 18:09] LABS: Bacteria,Urine Few /hpf; Bilirubin,Urine 1+ (Negative); Blood,Urine Small (Negative); Color,Urine Red; Glucose,Urine (UA) Negative (Negative); Hyaline Casts,Urine 121 /lpf (0-2); Ketones,Urine Negative (Negative); Leukocyte Esterase,Urine Large (Negative); Mucus,Urine Occasional /hpf; Nitrite,Urine Negative (Negative); PH, Urine 5.0 (5.0-8.0); Protein,Urine 1+ (Negative); RBC,Urine 138 /hpf (0-5); Specific Gravity,Urine 1.019 (1.001-1.035); Squamous Epithelial Cell,Urine 80 /hpf (0-4); Urobilinogen,Urine 2.0 mg/dL (<2.0); WBC,Urine >182 /hpf (0-5)
[2024-12-07] MEDS: PANTOPRAZOLE 40 MG/10 ML VIAL IVP SCH (22:17)
[2024-12-07] MEDS: ONDANSETRON 4 MG/2 ML VIAL IVP PRN (23:56)
[2024-12-08] MEDS: SODIUM CHLORIDE 0.9% 1,000 ML IV ONE (05:13)
--- NOTE | 2024-12-08 07:52 | XR ---
EXAMINATION TYPE: XR chest 1V portable DATE OF EXAM: 12/08/2024 7:46 AM COMPARISON: Chest radiographs from 03/20/2024. CLINICAL INDICATION: Female, 69 years old with history of sirs; H TECHNIQUE: XR chest 1V portable Frontal view of the chest. FINDINGS: Lungs/Pleura: There is no evidence of pleural effusion, focal consolidation, or pneumothorax. Pulmonary vascularity: Unremarkable. Heart/mediastinum: Cardiomediastinal silhouette is unremarkable. Musculoskeletal: No acute osseous pathology. Left rotator cuff repair changes. Other findings: None Lines/Tubes: [id number] projecting over the right hemithorax with distal tip at the cavoatrial junction. IMPRESSION: No acute cardiopulmonary disease/process. [facility], , 12/08/2024 7:50 AM
[2024-12-08] MEDS: ENOXAPARIN 40 MG/0.4 ML SYRINGE SQ SCH (09:24)
[2024-12-08 09:29] LABS: Basophils # (A) 0.03 X 10*3/uL (0.00-0.10); Basophils % (A) 0.3 %; Eosinophils # (A) 0 X 10*3/uL (0.04-0.35); Eosinophils % (A) 0 %; HCT 26.0 % (37.2-46.3); HGB 8.3 g/dL (12.0-15.0); Immature Grans, Automated 0.30 %; Lymphocytes # (A) 1.07 X 10*3/uL (0.90-5.00); Lymphocytes % (A) 11.4 %; MCH 28.1 pg (27.0-32.0); MCHC 31.9 g/dL (32.0-37.0); MCV 88.1 FL (80.0-97.0); Monocytes # (A) 0.70 X 10*3/uL (0.20-1.00); Monocytes % (A) 7.5 %; NRBC Per 100 WBC 0 X 10*3/uL (0.00-0.01); Neutrophils # (A) 7.54 X 10*3/uL (1.80-7.70); Neutrophils % (A) 80.5 %; Platelet Count 177 X 10*3/uL (140-440); RBC 2.95 X 10*6/uL (4.10-5.20); RDW 17.1 % (11.5-14.5); WBC 9.37 X 10*3/uL (4.50-10.00)
[2024-12-08 13:10] LABS: ALT 13 U/L (8-44); AST 17 U/L (13-35); Albumin 3.0 g/dL (3.8-4.9); Albumin/Globulin Ratio 1.07 Ratio (1.60-3.17); Alkaline Phosphatase 311 U/L (41-126); Anion Gap 19.50 mmol/L (4.00-12.00); BUN/Creat Ratio 20.57 Ratio (12.00-20.00); Blood Urea Nitrogen 43.2 mg/dL (9.0-27.0); Calcium 8.2 mg/dL (8.7-10.3); Carbon Dioxide 29.5 mmol/L (21.6-31.8); Chloride 90 mmol/L (96-109); Globulin 2.8 g/dL (1.6-3.3); Glucose 114 mg/dL (70-110); Magnesium 1.9 mg/dL (1.5-2.4); Potassium 3.0 mmol/L (3.5-5.5); Sodium 139 mmol/L (135-145); Total Protein 5.8 g/dL (6.2-8.2)
--- NOTE | 2024-12-08 13:39 | P.PN ---
Subjective Progress Note Date: 12/08/24 69 year old F with PMH of pancreatic CA presents to the ED. She reports undergoing chemotherapy approximately 3 weeks ago. Over the past 5 days she reports intractable nausea and profuse vomiting associated with decreased PO intake. She reports "gurgling" in her chest. She reports difficulty swallowing with food that seems to get stuck in her throat. She reports coughing up white foam. She had profound diarrhea 10 days ago, C. diff was positive, just finished taking 10 days of PO Vancomycin. In the ED she underwent extensive evaluation. BP 91/62, HR 105, T 97.6F, RR 20, 97% on RA. CBC, Coag panel, CMP significant for WBC 17.23, RBC 3.95, Hg 11.3, Hct 33.8, Na 134, Cl 81, bicarb 33, BUN 46, Cr 1.72, glu 162, T. Bili 1.6, alk phos 438. KUB no acute process. EKG sinus rhythm with RBBB. Patient is admitted for further workup and management. 12/08 Patient was seen and examined. Reports vomiting large amount of liquid overnight. CBC and CMP significant for RBC 2.95, Hg 8.3, Hct 26, K 3, Cl 90, AG 19.5, BUN 43.2, Cr 2.1, glu 114, Ca 8.2, alk phos 311, alb 3. Mag 1.9. UA shows large LE but with 138 RBC, > 182 WBC, 80 Sq Epi cells. CXR was done showing no acute process. General: non toxic, no distress, appears at stated age Derm: warm, dry Head: atraumatic, normocephalic, symmetric Eyes: EOMI, no lid lag, anicteric sclera Mouth: no lip lesion, mucus membranes moist Cardiovascular: S1S2 tachy, no murmur Lungs: Decreased BS bilateral, no rhonchi, no rales , no accessory muscle use Abd: Soft non tender to palpation with + BS Ext: no gross muscle atrophy, no edema, no contractures Neuro: no focal neuro deficits Psych: Alert, oriented, appropriate affect Based on my assessment of this patient, this patient meets a high complexity level of care. SIRS: Follow BCx. UA appears dirty. No signs of active infection. Possibly reactive. Hold antibiotics. Monitor fever profile. Intractable N/V: Gastritis versus side effect of chemo. IV hydration as below. Zofran 4 mg IV TID PRN. Protonix 40 mg IV BID. Obtain CT AP without contrast given worsening renal function. Dysphagia: Likely odynophagia from intractable N/V. May consult surgery awaiting results of CT AP. HypoCl hypoNa with metabolic alkalosis and AJAY likely due to dehydration: Increase NS from 75 to 130 cc/hr. Hypokalemia: KCl 40 meq PO + 20 meq IV ordered x 1. Hyperbilirubinemia and elevated alk phos possibly related to underlying pancreatic malignancy Normocytic anemia: Unknown etiology. No signs of active bleeding. Monitor. CODE STATUS: NO CODE DVT Prophylaxis: Lovenox. GI Prophylaxis: Protonix IV Designated medical POA if patient is not able to make medical decisions for themselves: I have reviewed the following analytics consultant notes: I have reviewed the results of the following tests: As above. I have ordered the following tests: As above. I have discussed the care of this patient with the following independent h istorian: [place]. I have independently interpreted the following test below: CXR I have discussed the management of this patient with the following physician: Objective - Vital Signs Vital signs: Vital Signs Temp 98.2 F 12/08/24 12:19 Pulse 81 12/08/24 12:19 Resp 16 12/08/24 12:19 BP 90/54 12/08/24 12:19 Pulse Ox 95 12/08/24 12:19 FiO2 Intake & Output 12/07/24 12/08/24 12/08/24 18:59 06:59 18:59 Intake Total 240 240 Output Total 1000 Balance 240 -1000 240 Weight 61.235 kg Intake: Oral 240 240 Output: Emesis 1000 Other: Voiding Method Toilet # Voids 1 - Labs CBC & Chem 7: 12/08/24 06:27 12/08/24 06:27 Labs: Abnormal Lab Results - Last 24 Hours (Table) 12/07/24 12/08/24 12/08/24 Range/Units 17:47 06:27 06:27 RBC 2.95 L (4.10-5.20) X 10*6/uL Hgb 8.3 L (12.0-15.0) g/dL Hct 26.0 L (37.2-46.3) % MCHC 31.9 L (32.0-37.0) g/dL RDW 17.1 H (11.5-14.5) % MPV 12.3 H (9.5-12.2) FL Eosinophils # 0 L (0.04-0.35) X 10*3/uL Potassium 3.0 L (3.5-5.5) mmol/L Chloride 90 L (96-109) mmol/L Anion Gap 19.50 H (4.00-12.00) mmol/L BUN 43.2 H (9.0-27.0) mg/dL Creatinine 2.1 H (0.6-1.5) mg/dL Est GFR (CKD-EPI) 25 L (>=60) BUN/Creatinine Ratio 20.57 H (12.00-20.00) Ratio Glucose 114 H (70-110) mg/dL Calcium 8.2 L (8.7-10.3) mg/dL Alkaline Phosphatase 311 H (41-126) U/L Total Protein 5.8 L (6.2-8.2) g/dL Albumin 3.0 L (3.8-4.9) g/dL Albumin/Globulin Ratio 1.07 L (1.60-3.17) Ratio Urine Appearance Turbid H (Clear) Urine Protein 1+ H (Negative) Urine Blood Small H (Negative) Urine Bilirubin 1+ H (Negative) Ur Leukocyte Esterase Large H (Negative) Urine RBC 138 H (0-5) /hpf Urine WBC >182 H (0-5) /hpf Ur Squamous Epith Cells 80 H (0-4) /hpf Urine Bacteria Few H (None) /hpf Hyaline Casts 121 H (0-2) /lpf Urine Mucus Occasional H (None) /hpf
[2024-12-08 15:05] VITALS: BMI 22.4
[2024-12-08] MEDS: POTASSIUM CHLORIDE ER 20 MEQ TAB.ER PO STA (15:08)
[2024-12-08] MEDS: POTASSIUM CHLORIDE 20 MEQ in WATER FOR INJECTION 1 100ML.BAG IVPB STA (15:08)
--- NOTE | 2024-12-08 15:12 | CT ---
EXAMINATION TYPE: CT abdomen pelvis wo con DATE OF EXAM: 12/08/2024 2:20 PM COMPARISON: 09/07/2024 CLINICAL INDICATION: Female, 69 years old with history of AJAY, N/V intractable; pt was dx with pancre atic CA, pt last chemo 2 weeks ago pt reports n/v and denies any abd pain TECHNIQUE: Axial CT abdomen pelvis wo con;Sagittal and coronal reformats were created on a separate workstation. Contrast used: mL of , (none if empty) Oral contrast used: without Oral Contrast (none if empty) CT DLP: 542.60 mGycm, Automated exposure control for dose reduction was used. FINDINGS: LOWER CHEST: Unremarkable ABDOMEN LIVER: Unremarkable GALLBLADDER AND BILE DUCTS: Pneumobilia with stent graft with inferior portion terminating near the d uodenum possibly in the pancreatic parenchyma.. Portion terminating in the avery hepatis. Air-fluid l evel seen near the superior portion of the stent. PANCREAS: Lower density area within the mid pancreatic body possibly area of prior mass measuring 40 x 21 mm SPLEEN: Unremarkable. ADRENAL GLANDS: Unremarkable. KIDNEYS AND URETERS: No evidence of hydronephrosis or obstructing renal calculus. The ureters are unr emarkable. Probable simple appearing right renal cortical cyst. No follow-up recommended. PELVIS BLADDER: No evidence for wall thickening or mass given limitations of exam. REPRODUCTIVE: Unremarkable. ABDOMEN & PELVIS STOMACH AND BOWEL: No evidence of bowel obstruction. Scattered colonic diverticula. PERITONEUM/RETROPERITONEUM: No evidence of pneumoperitoneum or free fluid. VASCULATURE: No evidence of aortic aneurysm. MUSCULOSKELETAL: No acute osseous abnormalities, left rib 7 fracture with callus formation. LYMPH NODES: No gross evidence for lymphadenopathy. SOFT TISSUE/ABDOMINAL WALL: Unremarkable IMPRESSION: 1. Pneumobilia with stent graft with inferior portion terminating near the duodenum possibly in the pancreatic parenchyma.. Portion terminating in the avery hepatis. Air-fluid level seen near the super ior portion of the stent. Correlate for signs and symptoms of ascending infection within the biliary system. No other acute process is visualized in the abdomen. 2. Lower density area within the mid pancreatic body possibly area of prior mass measuring 40 x 21 m m 3. Colonic diverticulosis. 4. Remote right posterior lateral rib 7 subacute fracture. [facility], , 12/08/2024 3:09 PM
--- NOTE | 2024-12-08 17:19 | P.CONS ---
History of Present Illness - Reason for Consult Consult date: 12/08/24 pancreatic cancer Requesting physician: Jeremiah Millan - Chief Complaint nausea/vomiting - History of Present Illness Ms. Buck is a very pleasant 69 yo female with history of multiple comorbidities including newly found pancreatic cancer, with recent recurrent hospitalizations, last seen on 11/29/24 and chemotherapy was placed on hold, who is here for nausea and comiting. She was due for OP CT at to restage her cancer and consider palliative RT vs surgery, however ended up in the hospital prior to her scan. Oncologic History: Follows with Dr. Montez Forman. Shadia presented to Dr Decker, her PCP, with painless Jaundice, she was referred to [facility], CT Scan revealed obstructive jaundice and dilation of CBD. The patient was transferred to [facility] > Had ERCP with CDB stent placement & EUS with Bx, had 2.8X2.1X3.6 cm tumor in head of pancreas abuting SMV & ? Portal vein. No definite lymphadenopathy or metastatic disease. The patient who had severe itching at presentation stated itching resolved after placement of CDB stent and resolution of jaundice. She was evaluated by surgical oncology (Dr Keller), Neoadjuvant Chemotherapy approach advised. The patient denied any abdominal or back pain, no anorexia, but lost 30 lbs in last 6 months which she attributed to "eating healthy". Shadia is a life time non smoker, denies ETOH use, no family history of malignancy 04/05/24 S/p cycle 1 Folfirinox on 03/27 with G-CSF on 03/30. Pt reporting nausea and mild diarrhea. Zofran working to control nausea. Tolerating oral intake but does report diminished appetite. Denies abdominal pain and vomiting. Denies oral lesions/sensitivity, fever and chills 05/02/24 S/p cycle 3 Folfirinox on 04/24 with G-CSF on 04/27. Pt reporting nausea and mild diarrhea. Zofran working to control nausea. Tolerating oral intake but does report diminished appetite and fluid intake to oral sensitivites to cold. Also reporting increased fatigue after last cycle. Denies abdominal pain and vomiting. Denies oral lesions, fever and chills 05/16/24: Completed FOLFIRINOX X 4, C/O progressive numbness in feet > lost balace & fell due to neuropathy. Having difficulty eating/drinking > given IV fluids hydration. 05/24/24-Pt here today for acute visit. Dry heaves, throwing up just by smelling anything. Nausea can happen at any time. Reporting that she can't keep pills down. She has epigastric discomfort, "smell of water makes me want to barf". No fevers, she had a BM 2 days ago, soft, formed. Pt has CT next week and will see Dr. Keller after that. 06/21/24: Feels better, P neuropathy nearly resolved CT Scan ([facility]) > improved 08/30/24: C/O nausea/vomiting, anorexia, weakness & constipation Had CT Scan at [facility] > Progressive disease > surgery/Radiation ruled out 09/20/24: Feels OK, C/O anorexia, PET Scan: No mets 11/01/24: Was hospitalized at [facility] with Bacteremia (E Coli) > Seen by ID > Completed ABX course. Had Liver CT-Guided Bx >Negative. Denied abdominal pain, no weight loss 11/29/24: Not doing well, was hospitalized at [facility]- with severe diarrhea > improved. Having nausea, minimal oral feeding, very tired, in wheelchair. Plan on repeat CT in RO in 2 weeks, hold further chemotherapy, and follow up with surgery after scan. Past Medical History Past Medical History: Cancer, GERD/Reflux Additional Past Medical History / Comment(s): recent dx pancreatic cancer. jaundice before dx (02/25/24/) History of Any Multi-Drug Resistant Organisms: None Reported Past Surgical History: Cholecystectomy, Hysterectomy, Orthopedic Surgery Additional Past Surgical History / Comment(s): left shoulder tendons, right knee replaced Past Anesthesia/Blood Transfusion Reactions: Postoperative Nausea & Vomiting (PO NV) Past Psychological History: No Psychological Hx Reported Smoking Status: Never smoker Past Alcohol Use History: None Reported Past Drug Use History: None Reported - Past Family History Father Family Medical History: Cancer Additional Family Medical History / Comment(s): lung and brain cancer Sister(s) Family Medical History: Cancer Additional Family Medical History / Comment(s): colon cancer, with mets. another sister colon cancer. Medications and Allergies Home Medications Medication Instructions Recorded Confirmed Type Ferrous Sulfate [Feosol] 325 mg PO DAILY 12/07/24 12/07/24 History Omeprazole 40 mg PO BID 12/07/24 12/07/24 History Ondansetron Odt [Zofran Odt] 4 mg PO BID 12/07/24 12/07/24 History Vancomycin HCl [Vancomycin HCl 500 mg PO QID 12/07/24 12/07/24 History Oral Soln] droNABinol 5 mg PO HS 12/07/24 12/07/24 History polyethylene glycoL 3350 [Miralax] 17 gm PO DAILY PRN 12/07/24 12/07/24 History Allergies Allergy/AdvReac Type Severity Reaction Status Date / Time Penicillins Allergy Unknown Verified 12/07/24 15:38 Childhood Physical Exam Vitals: Vital Signs Temp Pulse Pulse Resp BP BP Pulse Ox 12/08/24 12:19 98.2 F 81 16 90/54 95 12/08/24 06:53 97.6 F 69 16 90/53 93 L 12/08/24 00:53 98.0 F 80 15 93/58 96 12/07/24 21:00 92/60 12/07/24 18:57 98 F 83 14 86/54 98 12/07/24 18:30 86 16 105/61 96 12/07/24 17:46 80 18 103/59 95 12/07/24 14:17 77 16 101/59 98 Intake and Output 12/07/24 12/08/24 12/08/24 22:59 06:59 14:59 Intake Total 240 540 Output Total 1000 Balance 240 -1000 540 Intake: Oral 240 540 Output: Emesis 1000 Other: Voiding Method Toilet # Voids 1 Weight 61.235 kg No acute distress. no respiratory distress. no jaundice or icterus. alert and oriented x 3. Results CBC & Chem 7: 12/08/24 06:27 12/08/24 06:27 Labs: Abnormal Lab Results - Last 24 Hours (Table) 12/07/24 12/08/24 12/08/24 Range/Units 17:47 06: 06:27 RBC 2.95 L (4.10-5.20) X 10*6/uL Hgb 8.3 L (12.0-15.0) g/dL Hct 26.0 L (37.2-46.3) % MCHC 31.9 L (32.0-37.0) g/dL RDW 17.1 H (11.5-14.5) % MPV 12.3 H (9.5-12.2) FL Eosinophils # 0 L (0.04-0.35) X 10*3/uL Potassium 3.0 L (3.5-5.5) mmol/L Chloride 90 L (96-109) mmol/L Anion Gap 19.50 H (4.00-12.00) mmol/L BUN 43.2 H (9.0-27.0) mg/dL Creatinine 2.1 H (0.6-1.5) mg/dL Est GFR (CKD-EPI) 25 L (>=60) BUN/Creatinine Ratio 20.57 H (12.00-20.00) Ratio Glucose 114 H (70-110) mg/dL Calcium 8.2 L (8.7-10.3) mg/dL Alkaline Phosphatase 311 H (41-126) U/L Total Protein 5.8 L (6.2-8.2) g/dL Albumin 3.0 L (3.8-4.9) g/dL Albumin/Globulin Ratio 1.07 L (1.60-3.17) Ratio Urine Appearance Turbid H (Clear) Urine Protein 1+ H (Negative) Urine Blood Small H (Negative) Urine Bilirubin 1+ H (Negative) Ur Leukocyte Esterase Large H (Negative) Urine RBC 138 H (0-5) /hpf Urine WBC >182 H (0-5) /hpf Ur Squamous Epith Cells 80 H (0-4) /hpf Urine Bacteria Few H (None) /hpf Hyaline Casts 121 H (0-2) /lpf Urine Mucus Occasional H (None) /hpf Chest x-ray: report reviewed Abdominal x-ray: report reviewed Assessment and Plan Assessment: 1. pancreatic cancer 2. intractable vomiting 3. chemotherapy toxicity 4. ajay with dehydration 5. leukocytosis, reactive 6. hyponatremia 7. UTI Plan: Ms. Buck is a very pleasant 69 yo female with pancreatic cancer and recurrent hospitalizations recently, here for intractable N/V. work up with leukocytosis, AJAY, mild hyponatremia, and UTI. - Hold chemotherapy - Antibiotics as per primary team - GI evaluation; pt with dysphagia recently, slightly better now - OP CT and PET as scheduled - CT AP ordered, await results Discussed with pt and she was agreeable. all questions answered. discussed with nursing staff.
[2024-12-09 04:59] LABS: HCT 25.3 % (37.2-46.3); MCH 28.9 pg (27.0-32.0); MCHC 32.8 g/dL (32.0-37.0); MCV 88.2 fL (80.0-97.0); RBC 2.87 10*6/uL (4.10-5.20); RDW 16.9 % (11.5-14.5); WBC 10.37 10*3/uL (4.50-10.00)
[2024-12-09 05:03] LABS: HGB 8.3 g/dL (12.0-15.0); Platelet Count 167 10*3/uL (140-440)
[2024-12-09 05:36] LABS: African American GFR (CKD) 29 (>60 ml/min/1.73 sqM); Anion Gap 12 mmol/L; Blood Urea Nitrogen 46 mg/dL (7-17); Calcium 8.3 mg/dL (8.4-10.2); Carbon Dioxide 28 mmol/L (22-30); Chloride 93 mmol/L (98-107); Glucose 83 mg/dL (74-99); Non-African American GFR(CKD) 25 (>60 ml/min/1.73 sqM); Sodium 133 mmol/L (137-145)
[2024-12-09 05:41] LABS: Potassium 2.7 mmol/L (3.5-5.1)
--- NOTE | 2024-12-09 08:51 | P.PN ---
Subjective Progress Note Date: 12/09/24 69 year old F with PMH of pancreatic CA with history of biliary stent presents to the ED. She reports undergoing chemotherapy approximately 3 weeks ago. Over the past 5 days she reports intractable nausea and profuse vomiting associated with decreased PO intake. She reports "gurgling" in her chest. She reports difficulty swallowing with food that seems to get stuck in her throat. She reports coughing up white foam. She had profound diarrhea 10 days ago, C. diff was positive, just finished taking 10 days of PO Vancomycin. In the ED she underwent extensive evaluation. BP 91/62, HR 105, T 97.6F, RR 20, 97% on RA. CBC, Coag panel, CMP significant for WBC 17.23, RBC 3.95, Hg 11.3, Hct 33.8, Na 134, Cl 81, bicarb 33, BUN 46, Cr 1.72, glu 162, T. Bili 1.6, alk phos 438. KUB no acute process. EKG sinus rhythm with RBBB. Patient is admitted for further workup and management. Started on IV hydration. CT AP performed showing pneumobilia with stent graft with inferior portion terminating near the duodenum possibly in the pancreatic parenchyma with air-fluid level, mid pancreatic body mass, diverticulosis, right posterior 7th rib subacute fracture. 12/09 Patient was seen and examined. Reports small amount of vomiting overnight. CBC and CMP significant for WBC 10.37, RBC 2.87, Hg 8.3, Hct 25.3, Na 133, K 2.7, Cl 93, BUN 46, Cr 1.98, Ca 8.3. CT AP performed showing pneumobilia with stent graft with inferior portion terminating near the duodenum possibly in the pancreatic parenchyma with air-fluid level, mid pancreatic body mass, diverticulosis, right posterior 7th rib subacute fracture. General: non toxic, no distress, appears at stated age Derm: warm, dry Head: atraumatic, normocephalic, symmetric Eyes: EOMI, no lid lag, anicteric sclera Mouth: no lip lesion, mucus membranes moist Cardiovascular: S1S2 reg, no murmur Lungs: Decreased BS bilateral, no rhonchi, no rales , no accessory muscle use Abd: Soft non tender to palpation with + BS Ext: no gross muscle atrophy, no edema, no contractures Neuro: no focal neuro deficits Psych: Alert, oriented, appropriate affect Based on my assessment of this patient, this patient meets a high complexity level of care. SIRS: Follow BCx. UA appears dirty. No signs of active infection. Possibly reactive. Hold antibiotics. Monitor fever profile. Pneumobilia: Patient has no RUQ tenderness. She has been afebrile. No concerns for ascending biliary infection. Surgery consulted due to findings on CT AP. Hypokalemia: KCl 40 meq PO + 40 meq IV x 1. Repeat labs in the AM. Intractable N/V: Gastritis versus side effect of chemo. IV hydration as below. Zofran 4 mg IV TID PRN. Protonix 40 mg IV BID. May need EGD if no improvement. Dysphagia: Likely odynophagia from intractable N/V. ST and Surgery consulted. HypoCl hypoNa and AJAY likely due to dehydration: Continue NS at 130 cc/hr. CT AP shows no hydronephrosis. Hyperbilirubinemia and elevated alk phos possibly related to underlying pancreatic malignancy Normocytic anemia: Unknown etiology. No signs of active bleeding. Monitor. History of pancreatic CA following Oncology CODE STATUS: NO CODE DVT Prophylaxis: Lovenox. GI Prophylaxis: Protonix IV Designated medical POA if patient is not able to make medical decisions for themselves: I have reviewed the following audit consultant notes: Oncology. I have reviewed the results of the following tests: CBC, BMP, CT AP. I have ordered the following tests: CBC, BMP in the AM. I have discussed the care of this patient with the following independent historian: [place]. I have independently interpreted the following test below: I have discussed the management of this patient with the following physician: Objective - Vital Signs Vital signs: Vital Signs Temp 98.3 F 12/09/24 07:12 Pulse 80 12/09/24 07:12 Resp 16 12/09/24 07:12 BP 99/63 12/09/24 07:12 Pulse Ox 97 12/09/24 07:12 FiO2 Intake & Output 12/08/24 12/09/24 12/09/24 18:59 06:59 18:59 Intake Total 1340 222 Output Total 200 Balance 1340 22 Weight 61.235 kg Intake: Oral 1340 222 Output: Emesis 200 Other: Voiding Method Toilet Toilet # Voids 5 1 - Labs CBC & Chem 7: 12/09/24 04:06 12/09/24 04:06 Labs: Abnormal Lab Results - Last 24 Hours (Table) 12/08/24 12/08/24 12/09/24 Range/Units 06:27 06:27 04:06 WBC 10.37 H (4.50-10.00) 10*3/uL RBC 2.95 L 2.87 L (4.10-5.20) X 10*6/uL Hgb 8.3 L 8.3 L D (12.0-15.0) g/dL Hct 26.0 L 25.3 L (37.2-46.3) % MCHC 31.9 L (32.0-37.0) g/dL RDW 17.1 H 16.9 H (11.5-14.5) % MPV 12.3 H (9.5-12.2) FL Eosinophils # 0 L (0.04-0.35) X 10*3/uL Sodium (137-145) mmol/L Potassium 3.0 L (3.5-5.5) mmol/L Chloride 90 L (96-109) mmol/L Anion Gap 19.50 H (4.00-12.00) mmol/L BUN 43.2 H (9.0-27.0) mg/dL Creatinine 2.1 H (0.6-1.5) mg/dL Est GFR (CKD-EPI) 25 L (>=60) BUN/Creatinine Ratio 20.57 H (12.00-20.00) Ratio Glucose 114 H (70-110) mg/dL Calcium 8.2 L (8.7-10.3) mg/dL Alkaline Phosphatase 311 H (41-126) U/L Total Protein 5.8 L (6.2-8.2) g/dL Albumin 3.0 L (3.8-4.9) g/dL Albumin/Globulin Ratio 1.07 L (1.60-3.17) Ratio 12/09/24 Range/Units 04:06 WBC (4.50-10.00) 10*3/uL RBC (4.10-5.20) X 10*6/uL Hgb (12.0-15.0) g/dL Hct (37.2-46.3) % MCHC (32.0-37.0) g/dL RDW (11.5-14.5) % MPV (9.5-12.2) FL Eosinophils # (0.04-0.35) X 10*3/uL Sodium 133 L (137-145) mmol/L Potassium 2.7 L* (3.5-5.5) mmol/L Chloride 93 L (96-109) mmol/L Anion Gap (4.00-12.00) mmol/L BUN 46 H (9.0-27.0) mg/dL Creatinine 1.97 H (0.6-1.5) mg/dL Est GFR (CKD-EPI) (>=60) BUN/Creatinine Ratio (12.00-20.00) Ratio Glucose (70-110) mg/dL Calcium 8.3 L (8.7-10.3) mg/dL Alkaline Phosphatase (41-126) U/L Total Protein (6.2-8.2) g/dL Albumin (3.8-4.9) g/dL Albumin/Globulin Ratio (1.60-3.17) Ratio Microbiology - Last 24 Hours (Table) 12/07/24 18:10 Blood Culture - Preliminary Blood
[2024-12-09] MEDS: FOSAPREPITANT DIMEGLUMINE 150 MG in SODIUM CHLORIDE 0.9% 145 ML IV ONE (09:35)
[2024-12-09] MEDS: FERROUS SULFATE 325 MG TAB PO SCH (09:54)
[2024-12-09] MEDS: POTASSIUM CHLORIDE ER 20 MEQ TAB.ER PO STA (11:07)
[2024-12-09] MEDS: POTASSIUM CHLORIDE 10 MEQ in WATER FOR INJECTION 1 100ML.BAG IVPB SCH (11:49)
[2024-12-10 06:37] LABS: African American GFR (CKD) 36 (>60 ml/min/1.73 sqM); Anion Gap 11 mmol/L; Blood Urea Nitrogen 41 mg/dL (7-17); Calcium 8.2 mg/dL (8.4-10.2); Carbon Dioxide 25 mmol/L (22-30); Chloride 99 mmol/L (98-107); Glucose 63 mg/dL (74-99); Non-African American GFR(CKD) 31 (>60 ml/min/1.73 sqM); Potassium 3.0 mmol/L (3.5-5.1); Sodium 135 mmol/L (137-145)
[2024-12-10 06:42] LABS: HCT 22.6 % (37.2-46.3); HGB 7.3 g/dL (12.0-15.0); MCH 28.7 pg (27.0-32.0); MCHC 32.3 g/dL (32.0-37.0); MCV 89.0 fL (80.0-97.0); Platelet Count 120 10*3/uL (140-440); RBC 2.54 10*6/uL (4.10-5.20); RDW 16.6 % (11.5-14.5); WBC 5.73 10*3/uL (4.50-10.00)
[2024-12-10 07:20] VITALS: RESP 16
[2024-12-10] MEDS: ENOXAPARIN 30 MG/0.3 ML SYRINGE SQ SCH (08:28)
[2024-12-10] MEDS ORDERED: Potassium Replacement Protocol 1 EACH MISC MISCELLANE PRN (10:09)
[2024-12-10] MEDS: POTASSIUM CHLORIDE 10 MEQ in WATER FOR INJECTION 1 100ML.BAG IVPB SCH ×2 (10:45→16:11)
--- NOTE | 2024-12-10 12:19 | P.GSCN ---
History of Present Illness Consult date: 12/10/24 History of present illness: 69-year-old female presents with significant nausea and vomiting. She is known to have history of pancreatic cancer. Mediport is in place. She has been on chemotherapy regimen. CT of the abdomen and pelvis was performed as patient has history of ERCP stent secondary to the pancreatic mass. There is some pneumobilia noted. Currently, no significant abdominal pain. Review of Systems All systems: negative Past Medical History Past Medical History: Cancer, GERD/Reflux Additional Past Medical History / Comment(s): recent dx pancreatic cancer. jaundice before dx (02/25/24/) History of Any Multi-Drug Resistant Organisms: None Reported Past Surgical History: Cholecystectomy, Hysterectomy, Orthopedic Surgery Additional Past Surgical History / Comment(s): left shoulder tendons, right knee replaced Past Anesthesia/Blood Transfusion Reactions: Postoperative Nausea & Vomiting (PONV) Past Psychological History: No Psychological Hx Reported Smoking Status: Never smoker Past Alcohol Use History: None Reported Past Drug Use History: None Reported - Past Family History Father Family Medical History: Cancer Additional Family Medical History / Comment(s): lung and brain cancer Sister(s) Family Medical History: Cancer Additional Family Medical History / Comment(s): colon cancer, with mets. anot her sister colon cancer. Medications and Allergies Home Medications Medication Instructions Recorded Confirmed Type Ferrous Sulfate [Feosol] 325 mg PO DAILY 12/07/24 12/07/24 History Omeprazole 40 mg PO BID 12/07/24 12/07/24 History Ondansetron Odt [Zofran Odt] 4 mg PO BID 12/07/24 12/07/24 History Vancomycin HCl [Vancomycin HCl 500 mg PO QID 12/07/24 12/07/24 History Oral Soln] droNABinol 5 mg PO HS 12/07/24 12/07/24 History polyethylene glycoL 3350 [Miralax] 17 gm PO DAILY PRN 12/07/24 12/07/24 History Allergies Allergy/AdvReac Type Severity Reaction Status Date / Time Penicillins Allergy Unknown Verified 12/07/24 15:38 Childhood Surgical - Exam Osteopathic Statement: *. No significant issues noted on an osteopathic structural exam other than those noted in the History and Physical/Consult. Vital Signs Temp Pulse Resp BP Pulse Ox 97.6 F 105 H 20 91/62 97 12/07/24 11:17 12/07/24 11:17 12/07/24 11:17 12/07/24 11:17 12/07/24 11:17 - General no distress - Eyes normal ocular movement - Abdomen Abdomen: soft, non tender Results - Labs 12/10/24 05:02 12/10/24 05:02 Abnormal Lab Results - Last 24 Hours (Table) 12/10/24 12/10/24 Range/Units 05:02 05:02 RBC 2.54 L (4.10-5.20) 10*6/uL Hgb 7.3 L (12.0-15.0) g/dL Hct 22.6 L (37.2-46.3) % RDW 16.6 H (11.5-14.5) % Plt Count 120 L (140-440) 10*3/uL Sodium 135 L (137-145) mmol/L Potassium 3.0 L (3.5-5.1) mmol/L BUN 41 H (7-17) mg/dL Creatinine 1.65 H (0.52-1.04) mg/dL Glucose 63 L (74-99) mg/dL Calcium 8.2 L (8.4-10.2) mg/dL Microbiology - Last 24 Hours (Table) 12/07/24 18:10 Blood Culture - Preliminary Blood Diabetes panel 12/10/24 Range/Units 05:02 Sodium 135 L (137-145) mmol/L Potassium 3.0 L (3.5-5.1) mmol/L Chloride 99 (98-107) mmol/L Carbon Dioxide 25 (22-30) mmol/L BUN 41 H (7-17) mg/dL Creatinine 1.65 H (0.52-1.04) mg/dL Glucose 63 L (74-99) mg/dL Calcium 8.2 L (8.4-10.2) mg/dL Calcium panel 12/10/24 Range/Units 05:02 Calcium 8.2 L (8.4-10.2) mg/dL Pituitary panel 12/10/24 Range/Units 05:02 Sodium 135 L (137-145) mmol/L Potassium 3.0 L (3.5-5.1) mmol/L Chloride 99 (98-107) mmol/L Carbon Dioxide 25 (22-30) mmol/L BUN 41 H (7-17) mg/dL Creatinine 1.65 H (0.52-1.04) mg/dL Glucose 63 L (74-99) mg/dL Calcium 8.2 L (8.4-10.2) mg/dL Adrenal panel 12/10/24 Range/Units 05:02 Sodium 135 L (137-145) mmol/L Potassium 3.0 L (3.5-5.1) mmol/L Chloride 99 (98-107) mmol/L Carbon Dioxide 25 (22-30) mmol/L BUN 41 H (7-17) mg/dL Creatinine 1.65 H (0.52-1.04) mg/dL Glucose 63 L (74-99) mg/dL Calcium 8.2 L (8.4-10.2) mg/dL Assessment and Plan Plan: 69-year-old female with history of pancreatic mass, ERCP with stenting and nausea and vomiting. Nausea and vomiting likely secondary to chemotherapy course. Pneumobilia is noted and is likely secondary to ERCP. She is currently without any abdominal pain and not showing any signs of sepsis. Continue with GI recommendations. Currently, no plan for acute surgical intervention.
[2024-12-10] MEDS: SCOPOLAMINE 1 MG/72 HR PATCH TRANSDERM SCH (12:47)
[2024-12-10] MEDS: POTASSIUM CHLORIDE ER 10 MEQ TAB.ER.PRT PO STA (12:47)
--- NOTE | 2024-12-10 14:27 | P.PN ---
Subjective Progress Note Date: 12/10/24 Principal diagnosis: Intractable N,V. Completed neoadj treatment for pancreatic adenocarcinoma 3 weeks ago In f/u today pt is reporting she is tired of feeling bad. Nausea today, no emesis yet, she is taking in some clears but her abd will feel bloated with only small amounts. She had copious bilious emesis on admit. thinks it has been nearly 2 weeks since pt had a BM, pt thinks she had one while inpt at another hospital recently Objective - Vital Signs Vital signs: Vital Signs Temp 97.5 F L 12/10/24 12:04 Pulse 69 12/10/24 12:04 Resp 16 12/10/24 12:04 BP 157/71 12/10/24 12:04 Pulse Ox 97 12/10/24 12:04 FiO2 Intake & Output 12/09/24 12/10/24 12/10/24 18:59 06:59 18:59 Intake Total 2460 240 480 Balance 2460 240 480 Intake: Oral 960 240 480 Blood Product 1500 Other: Voiding Method Toilet Toilet Toilet # Voids 5 1 - Constitutional General appearance: Present: average body habitus, cooperative, no acute distress - EENT Eyes: Present: anicteric sclerae, EOMI ENT: Present: hearing grossly normal, normal oropharynx - Respiratory Respiratory: bilateral: CTA - Cardiovascular Rhythm: regular Heart sounds: normal: S1, S2 Abnormal Heart Sounds: Absent: systolic murmur, diastolic murmur, rub, S3 Gallop, S4 Gallop, click, other - Gastrointestinal Gastrointestinal Comment(s): band of swelling just under ribs, very firm to palpation, lower abd is soft, non distended. BS hypoactive - Neurologic Neurologic: Present: CNII-XII intact - Musculoskeletal Musculoskeletal: Present: generalized weakness, strength equal bilaterally - Psychiatric Psychiatric: Present: A&O x's 3, appropriate affect, intact judgment & insight - Labs CBC & Chem 7: 12/10/24 05:02 12/10/24 05:02 Labs: Abnormal Lab Results - Last 24 Hours (Table) 12/10/24 12/10/24 Range/Units 05:02 05:02 RBC 2.54 L (4.10-5.20) 10*6/uL Hgb 7.3 L (12.0-15.0) g/dL Hct 22.6 L (37.2-46.3) % RDW 16.6 H (11.5-14.5) % Plt Count 120 L (140-440) 10*3/uL Sodium 135 L (137-145) mmol/L Potassium 3.0 L (3.5-5.1) mmol/L BUN 41 H (7-17) mg/dL Creatinine 1.65 H (0.52-1.04) mg/dL Glucose 63 L (74-99) mg/dL Calcium 8.2 L (8.4-10.2) mg/dL Microbiology - Last 24 Hours (Table) 12/07/24 18:10 Blood Culture - Preliminary Blood - Imaging and Cardiology CT scan - abdomen: report reviewed CT scan - pelvis: report reviewed Assessment and Plan (1) Intractable nausea and vomiting Current Visit: Yes Status: Acute Priority: High Code(s): R11.2 - NAUSEA WITH VOMITING, UNSPECIFIED SNOMED Code(s): 997948902 (2) Dilation of biliary tract Current Visit: Yes Status: Acute Priority: High Code(s): K83.8 - OTHER SPECIFIED DISEASES OF BILIARY TRACT SNOMED Code(s): 561889154 (3) Pancreatic adenocarcinoma Current Visit: Yes Status: Acute Priority: High Code(s): C25.9 - MALIGNANT NEOPLASM OF PANCREAS, UNSPECIFIED SNOMED Code(s): 471127468 Plan: Intractable nausea and vomiting - Patient completed treatment about 3 weeks ago. Would not anticipate patient still having nausea and vomiting from chemotherapy but, this is certainly possible. - Antiemetic medications have been modified. - Did speak with GI [facility]. Patient is being scheduled for endoscopy tomorrow to assess for possible stent migration, infection. -Abd xray ordered for distension, no BM>1 week Dilation of the biliary tract - Surgery has assessed the patient, no surgical intervention planned - GI has assessed the patient, plans for upper endoscopy tomorrow Pancreatic adenocarcinoma - Patient is status post 9 cycles of neoadjuvant treatment. - Due for treatment follow-up imaging and evaluation by Surgeon for possible Whipple procedure. Will see what imaging and procedures in the next day show.
--- NOTE | 2024-12-10 14:47 | XR ---
EXAMINATION TYPE: XR abdomen complete w decub DATE OF EXAM: 12/10/2024 COMPARISON: NONE CLINICAL INDICATION: Female, 69 years old with history of abd distension, no BM >1 week, intractable N,V; TECHNIQUE: Supine, upright, and left side down lateral decubitus views of the abdomen are obtained. FINDINGS: There is no evidence for pneumoperitoneum. Right upper quadrant stent grafts. Right upper quadrant v asectomy. The bowel gas pattern is unremarkable as there is air throughout nondilated small and large bowel. No sizeable air fluid levels. No mass effects are seen. No unusual calcifications. Multilevel degeneration changes throughout the spine. Moderate stool leona en in the colon. IMPRESSION: Unremarkable study [facility], , 12/10/2024 2:44 PM
[2024-12-10] MEDS: POTASSIUM CHLORIDE ER 20 MEQ TAB.ER PO ONE (15:38)
--- NOTE | 2024-12-10 15:51 | P.CONS ---
History of Present Illness - Reason for Consult Consult date: 12/10/24 Dysphagia Requesting physician: Jeremiah Millan - Chief Complaint Nausea and vomiting - History of Present Illness Is a pleasant 69-year-old female diagnosed with pancreatic cancer around February 2024. She was initially seen at [facility] and underwent ERCP and EUS with stent placement. She now follows with surgical oncologist out of [facility]. She is status post 8 treatments of chemotherapy last treatment about 2 weeks ago. Since that treatment she has had intractable nausea and vomiting. States mostly bile. She also was recently diagnosed and treated for C. difficile and was on oral vancomycin for 10 days. Now she states she has not had a bowel movement in about 10 days. She is complaining of some abdominal bloating. She denies any food feeling that it is getting stuck but states that she has some burning sensation in her chest with eating and soon as she tries to eat it just comes right back up. She denies any hematemesis or coffee-ground emesis. Gastroenterology was consulted for dysphagia. Patient states that she has lost about 170 pounds since her diagnosis. Review of Systems REVIEW OF SYSTEMS: CARDIOPULMONARY: No chest pain or shortness of breath. Gastrointestinal: No abdominal pain. Intractable nausea and vomiting. No hematemesis, coffee-ground emesis. No rectal bleeding, or melena. Constipation. GENITOURINARY: No dysuria or hematuria. MUSCULOSKELETAL: Reports normal range of motion. SKIN: No rashes. No jaundice. ENDOCRINE: No chills, fevers. No excessive weight gain or loss. No polydipsia or polyuria. PSYCHIATRIC: Unremarkable. NEUROLOGY: No change in mental status. Denies dizziness, headache. ENT: Vision unremarkable. CONSTITUTIONAL: No recent weight loss. No fever, chills, night sweats. Past Medical History Past Medical History: Cancer, GERD/Reflux Additional Past Medical History / Comment(s): recent dx pancreatic cancer. jaundice before dx (02/25/24/) History of Any Multi-Drug Resistant Organisms: None Reported Past Surgical History: Cholecystectomy, Hysterectomy, Orthopedic Surgery Additional Past Surgical History / Comment(s): left shoulder tendons, right knee replaced Past Anesthesia/Blood Transfusion Reactions: Postoperative Nausea & Vomiting (PONV) Past Psychological History: No Psychological Hx Reported Smoking Status: Never smoker Past Alcohol Use History: None Reported Past Drug Use History: None Reported - Past Family History Father Family Medical History: Cancer Additional Family Medical History / Comment(s): lung and brain cancer Sister(s) Family Medical History: Cancer Additional Family Medical History / Comment(s): colon cancer, with mets. another sister colon cancer. Medications and Allergies Home Medications Medication Instructions Recorded Confirmed Type Ferrous Sulfate [Feosol] 325 mg PO DAILY 12/07/24 12/07/24 History Omeprazole 40 mg PO BID 12/07/24 12/07/24 History Ondansetron Odt [Zofran Odt] 4 mg PO BID 12/07/24 12/07/24 History Vancomycin HCl [Vancomycin HCl 500 mg PO QID 12/07/24 12/07/24 History Oral Soln] droNABinol 5 mg PO HS 12/07/24 12/07/24 History polyethylene glycoL 3350 [Miralax] 17 gm PO DAILY PRN 12/07/24 12/07/24 History Allergies Allergy/AdvReac Type Severity Reaction Status Date / Time Penicillins Allergy Unknown Verified 12/07/24 15:38 Childhood Physical Exam Vitals: Vital Signs Temp Pulse Resp BP Pulse Ox 12/10/24 07:19 97.5 F L 77 16 135/75 97 12/10/24 00:58 97.9 F 68 15 102/58 95 12/09/24 19:05 98.1 F 73 15 98/58 99 12/09/24 12:21 98.1 F 68 16 116/71 97 Intake and Output 12/09/24 12/10/24 12/10/24 22:59 06:59 14:59 Intake Total 1979 480 Balance 1979 480 Intake: Oral 480 480 Blood Product 1500 Other: Voiding Method Toilet Toilet # Voids 1 General appearance: The patient is alert, oriented, appears in no acute distress. HET: Head is normocephalic and atraumatic. Conjunctiva pink. Sclera anicteric. Neck: Supple without lymphadenopathy. Trachea midline. Heart: Regular. Lungs: Equal expansion, normal respiratory effort. Abdomen: Soft, nontender, nondistended. Skin: No rashes. No jaundice. Extremities: Normal skin color and turgor. No pedal edema. Neurological: No focal deficits. Alert and oriented x3. Results CBC & Chem 7: 12/10/24 05:02 12/10/24 05:02 Labs: Abnormal Lab Results - Last 24 Hours (Table) 12/10/24 12/10/24 Range/Units 05:02 05:02 RBC 2.54 L (4.10-5.20) 10*6/uL Hgb 7.3 L (12.0-15.0) g/dL Hct 22.6 L (37.2-46.3) % RDW 16.6 H (11.5-14.5) % Plt Count 120 L (140-440) 10*3/uL Sodium 135 L (137-145) mmol/L Potassium 3.0 L (3.5-5.1) mmol/L BUN 41 H (7-17) mg/dL Creatinine 1.65 H (0.52-1.04) mg/dL Glucose 63 L (74-99) mg/dL Calcium 8.2 L (8.4-10.2) mg/dL Microbiology - Last 24 Hours (Table) 12/07/24 18:10 Blood Culture - Preliminary Blood Comments: CT abdomen pelvis without contrast reports pneumobilia with stent graft with inferior portion terminating near the duodenum possibly in the pancreatic parenchyma. Portion terminating in the avery hepatitis. Air-fluid level seen near the superior portion of the stent. Correlate for signs and symptoms of a sending infection within the biliary system. No other acute processes visualized in the abdomen. Low-density area within the mid pancreatic body possibly area of prior mass measuring 40 x 21 mm. Colonic diverticulosis. Remote right posterior lateral ribs 7 subacute fracture. Assessment and Plan (1) Intractable nausea and vomiting Narrative/Plan: 69-year-old female diagnosed with pancreatic adenocarcinoma who has been undergoing chemotherapy finished her eighth treatment about 2 weeks ago and since that time has had intractable nausea and vomiting. Unclear etiology as she has not had the significant of nausea and vomiting with prior treatments. Patient states anything she tries to eat comes right back up. Denies any abdominal pain associated however is having some abdominal distention and has not had a bowel movement in several days. Patient did recently have C. difficile colitis with treatment with vancomycin. Will plan for upper endoscopy for further evaluation of nausea and vomiting. Current Visit: Yes Status: Acute Priority: High Code(s): R11.2 - NAUSEA WITH VOMITING, UNSPECIFIED SNOMED Code(s): 650895931 (2) Hypokalemia Current Visit: Yes Status: Acute Code(s): E87.6 - HYPOKALEMIA SNOMED Code(s): 03616256 (3) Pancreatic adenocarcinoma Current Visit: Yes Status: Acute Priority: High Code(s): C25.9 - MALIGNANT NEOPLASM OF PANCREAS, UNSPECIFIED SNOMED Code(s): 598339998 Plan: 1. Continue symptomatic and supportive care 2. Diet as tolerated 3. N.p.o. after midnight 4. Protonix 40 mg daily 5. Continue with antiemetics, will add scopolamine patch 6. Replace electrolytes per protocol 7. Will plan for upper endoscopy tomorrow 8. General Surgery following, agree pneumobilia secondary to ERCP with stent 9. Continue with recommendations from oncology Thank you for this consultation, we will continue to follow. Dr. Lyn Schaffer I agree with the dictator's note, documented as a scribe by Willa Bailey.
[2024-12-10] MEDS: SENNOSIDES-DOCUSATE SODIUM 1 EACH TAB PO SCH (16:14)
[2024-12-10] MEDS: ONDANSETRON 4 MG/2 ML VIAL IVP PRN (16:17)
--- NOTE | 2024-12-10 17:02 | P.PN ---
Subjective Progress Note Date: 12/10/24 Hospital Course: [] 69 year old F with PMH of pancreatic CA with history of biliary stent presents to the ED. She reports undergoing chemotherapy approximately 3 weeks ago. Over the past 5 days she reports intractable nausea and profuse vomiting associated with decreased PO intake. She reports "gurgling" in her chest. She reports difficulty swallowing with food that seems to get stuck in her throat. She reports coughing up white foam. She had profound diarrhea 10 days ago, C. diff was positive, just finished taking 10 days of PO Vancomycin. In the ED she underwent extensive evaluation. BP 91/62, HR 105, T 97.6F, RR 20, 97% on RA. CBC, Coag panel, CMP significant for WBC 17.23, RBC 3.95, Hg 11.3, Hct 33.8, Na 134, Cl 81, bicarb 33, BUN 46, Cr 1.72, glu 162, T. Bili 1.6, alk phos 438. KUB no acute process. EKG sinus rhythm with RBBB. Patient is admitted for further workup and management. Started on IV hydration. CT AP performed showing pneumobilia with stent graft with inferior portion terminating near the duodenum possibly in the pancreatic parenchyma with air-fluid level, mid pancreatic body mass, diverticulosis, right posterior 7th rib subacute fracture. General surgery consulted. Patient does not have any abdominal pain at that time, no plan for surgical intervention., Changes likely related to recent ERCP. 12/10: Seen and examined at bedside, patient's present during exam. Discussed management with RN. No acute events overnight, patient states that she feels very weak and fatigued today, continues to have nausea and vomiting. Plan for EGD on 12/11 last bowel movement 6 days ago abdominal x-ray ordered per oncology Ensure unremarkable study, patient abdomen is distended but bowel sounds are present on exam, she states that she passes gas. She is afebrile with normal heart rate, stable blood pressure, satting well on room air. Her WBC count normal today, hemoglobin 7.3, continues to downtrend, platelet count 120, sodium improved to 135, potassium persistently low 3.0, could not relate IV potassium, switch to oral KCl, creatinine trending down 1.65. Pertinent positives and negatives as discussed above, a complete review of systems was performed and all other systems are negative. Vitals Signs Reviewed. General: [Chronically ill-appearing Derm: [warm], [dry] Head: [atraumatic], [normocephalic], [symmetric] Eyes: [EOMI], [no lid lag], [anicteric sclera] Mouth: [no lip lesion], [mucus membranes moist] Cardiovascular: [S1S2 reg], [no murmur] Lungs: Decreased bilateral breath sounds], [no rhonchi, no rales] , [no accessory muscle use] Abdominal: [soft], [ nontender to palpation] distended, bowel sounds present, [no guarding], [no appreciable organomegaly] Ext: [no gross muscle atrophy], [no edema], [no contractures] Neuro: [ CN II-XI grossly intact], [no focal neuro deficits] Psych: [Alert], [oriented], [appropriate affect] Assessment and Plan: Intractable nausea, vomiting, secondary to gastritis versus side effect of silke motherapy Dysphagia likely due to odynophagia from intractable nausea and vomiting Pneumobilia likely due to ERCP - Continue with IV fluids NS at 130 cc/h - Continue Zofran 4 mg IV every 4 hours as needed - Continue Protonix 40 mg IV twice daily - Plan for EGD on 12/11 - General Surgery consulted, no plans for surgical intervention -Patient's at bedside, discussed, discussed with RN Constipation - Abdominal x-ray as above, patient declined stool softeners as she is very sensitive, she would like to wait and see Hypochloremic hyponatremia AJAY likely due to dehydration, improving - Continue IV fluids as above, monitor BMP daily Hyperbilirubinemia and elevated alk phos possibly related to underlying pancreatic malignancy Hypokalemia: 60 mEq of potassium ordered, repeat BMP tomorrow Normocytic anemia: Unknown etiology. No signs of active bleeding. Monitor. History of pancreatic CA following Oncology DVT ppx: Lovenox Code status: DNR/DNI Anticipated discharge place: TBD Anticipated discharge time: TBD Objective - Vital Signs Vital signs: Vital Signs Temp 97.5 F L 12/10/24 12:04 Pulse 69 12/10/24 12:04 Resp 16 12/10/24 12:04 BP 157/71 12/10/24 12:04 Pulse Ox 97 12/10/24 12:04 FiO2 Intake & Output 12/09/24 12/10/24 12/10/24 18:59 06:59 18:59 Intake Total 2460 240 480 Balance 2460 240 480 Weight 61.235 kg Intake: Oral 960 240 480 Blood Product 1500 Other: Voiding Method Toilet Toilet Toilet # Voids 5 1 - Labs CBC & Chem 7: 12/10/24 05:02 12/10/24 05:02 Labs: Abnormal Lab Results - Last 24 Hours (Table) 12/10/24 12/10/24 Range/Units 05:02 05:02 RBC 2.54 L (4.10-5.20) 10*6/uL Hgb 7.3 L (12.0-15.0) g/dL Hct 22.6 L (37.2-46.3) % RDW 16.6 H (11.5-14.5) % Plt Count 120 L (140-440) 10*3/uL Sodium 135 L (137-145) mmol/L Potassium 3.0 L (3.5-5.1) mmol/L BUN 41 H (7-17) mg/dL Creatinine 1.65 H (0.52-1.04) mg/dL Glucose 63 L (74-99) mg/dL Calcium 8.2 L (8.4-10.2) mg/dL Microbiology - Last 24 Hours (Table) 12/07/24 18:10 Blood Culture - Preliminary Blood
[2024-12-10 23:58] LABS: Glucose,Whole Blood 69 mg/dL (70-110)
[2024-12-11] MEDS ORDERED: DEXTROSE 50% SYRINGE 50 ML IVP PRN (01:54)
[2024-12-11] MEDS: DEXTROSE 50% SYRINGE 50 ML IVP PRN (02:21)
[2024-12-11 02:49] LABS: Glucose,Whole Blood 98 mg/dL (70-110)
[2024-12-11 05:07] LABS: Glucose,Whole Blood 77 mg/dL (70-110)
[2024-12-11 07:03] LABS: Glucose,Whole Blood 80 mg/dL (70-110)
[2024-12-11 08:00] LABS: Basophils # (A) 0.03 10*3/uL (0.00-0.10); Basophils % (A) 0.4 %; Eosinophils # (A) 0.02 10*3/uL (0.04-0.35); Eosinophils % (A) 0.2 %; HCT 26.3 % (37.2-46.3); HGB 8.4 g/dL (12.0-15.0); Lymphocytes # (A) 0.90 10*3/uL (0.90-5.00); Lymphocytes % (A) 10.7 %; MCH 28.9 pg (27.0-32.0); MCHC 31.9 g/dL (32.0-37.0); MCV 90.4 fL (80.0-97.0); Monocytes # (A) 0.52 10*3/uL (0.20-1.00); Monocytes % (A) 6.2 %; Neutrophils # (A) 6.92 10*3/uL (1.80-7.70); Neutrophils % (A) 82.1 %; Platelet Count 168 10*3/uL (140-440); RBC 2.91 10*6/uL (4.10-5.20); RDW 17.1 % (11.5-14.5); WBC 8.42 10*3/uL (4.50-10.00)
[2024-12-11 08:19] LABS: African American GFR (CKD) 46 (>60 ml/min/1.73 sqM); Anion Gap 18 mmol/L; Blood Urea Nitrogen 35 mg/dL (7-17); Calcium 8.6 mg/dL (8.4-10.2); Carbon Dioxide 17 mmol/L (22-30); Chloride 105 mmol/L (98-107); Glucose 74 mg/dL (74-99); Magnesium 1.7 mg/dL (1.6-2.3); Non-African American GFR(CKD) 40 (>60 ml/min/1.73 sqM); Potassium 3.6 mmol/L (3.5-5.1); Sodium 140 mmol/L (137-145)
[2024-12-11 11:35] LABS: Glucose,Whole Blood 87 mg/dL (70-110)
[2024-12-11] MEDS: IV FLUID CONTINUATION 1,000 ML IV ONE ×2 (12:55→13:34)
[2024-12-11] MEDS ORDERED: ONDANSETRON 4 MG/2 ML VIAL ONE (13:09)
[2024-12-11] MEDS ORDERED: PROPOFOL 10 MG/ML 20 ML VIAL IV ONE (13:09)
[2024-12-11] MEDS: SODIUM CHLORIDE 0.9% 500 ML 500 ML IV ONE (13:34)
--- NOTE | 2024-12-11 13:36 | P.PCN ---
Date of Procedure: 12/11/24 Procedure(s) Performed: BRIEF HISTORY: Patient is a 69-year-old, pleasant, white female diagnosed with pancreatic cancer in February 2024 currently undergoing chemotherapy. Admitted to hospital with severe nausea vomiting for the last 1 month duration. She is not scheduled for an upper endoscopy to evaluate further.. PROCEDURE PERFORMED: Esophagogastroduodenoscopy. PREOPERATIVE DIAGNOSIS: Persistent nausea vomiting of 1 month duration associated progressive weight loss of 50 pounds. IV sedation per anesthesia. PROCEDURE: After informed consent was obtained, the patient was brought into the endoscopy unit. IV sedation was administered by Anesthesia under continuous monitoring. Initially the Olympus GIF-140 video endoscope was inserted into the mouth. Esophagus intubated without any difficulty. It was gradually advanced into the stomach. There was large amount of liquid in the stomach and total of 3.8 L of bilious fluid was aspirated. Following this I was gradually able to advance the scope through the pylorus into the bulb of the duodenum. Along the duodenal sweep there was a complete obstruction noted. There was a friable mass identified. I was not able to advance the scope into the second part of the duodenum. The scope at this time was withdrawn to the stomach, adequately insufflated with air, and upon careful examination, mucosa of the antrum, body, cardia and the fundus appeared normal. The scope was then withdrawn into the esophagus. The GE junction was located at 39 cm from the incisors. There were linear erosions in the distal esophagus consistent with LA grade B reflux esophagitis. The rest of the esophagus appeared normal and the patient tolerated the procedure well. IMPRESSION: 1. Complete duodenal obstruction along the duodenal sweep secondary to an obstructing mass possibly from pancreatic adenocarcinoma. 2. Large amount of retained liquid in the stomach and total of 3.8 L of fluid was aspirated. 3. Severe reflux esophagitis RECOMMENDATIONS: The findings of this examination were discussed with the patient as well as her family. At this time an NG tube was placed for gastric decompression. Continue with Protonix 40 mg twice daily. Recommended a transfer to [facility] for duodenal stent placement
--- NOTE | 2024-12-11 13:50 | P.PN ---
Progress Note - Text Progress Note Date: 12/11/24 Patient underwent upper endoscopy with findings of complete duodenal obstruction from duodenal sweep obstructing mass likely secondary to pancreatic adenocarcinoma. This was discussed with patient and patient's family. Recommend transfer to tertiary center for placement of duodenal stent. Patient currently undergoes treatment with Dr. Munoz at [facility]. This was discussed with the primary medical team Dr. Maldonado. Dr. Lyn Schaffer I agree with the dictator's note, documented as a scribe by Willa Bailey.
--- NOTE | 2024-12-11 14:26 | P.PN ---
Subjective Progress Note Date: 12/11/24 SURGICAL PROGRESS NOTE CHIEF COMPLAINT: Nausea and vomiting HISTORY OF PRESENT ILLNESS: Patient still having issues with nausea and vomiting scheduled for EGD today with GI service. Patient had EGD completed that reported complete duodenal obstruction along the duodenal sweep secondary to obstructing mass positive from pancreatic adenocarcinoma. Large amount of retained liquid in the stomach. Patient has NG tube placed and GI service recommended transfer to [facility]. PHYSICAL EXAM: VITAL SIGNS: Reviewed. GENERAL: Well-developed in no acute distress. ABDOMEN: Soft. Nondistended. NEUROLOGIC: Alert and oriented. Cranial nerves II through XII grossly intact. ASSESSMENT: 1. Nausea and vomiting with EGD reporting a complete duodenal obstruction along the duodenal sweep secondary to obstructing mass possibly pancreatic adenocarcinoma 2. Known pancreatic cancer 3. Pneumobilia noted likely secondary to ERCP PLAN: - Agree with NG tube for decompression - Agree with transfer to [facility] Physician [employer] note has been reviewed by physician. Signing provider agrees with the documented findings, assessment, and plan of care. Objective - Vital Signs Vital signs: Vital Signs Temp 98.1 F 12/11/24 12:11 Pulse 65 12/11/24 12:11 Resp 16 12/11/24 12:11 BP 108/70 12/11/24 12:11 Pulse Ox 99 12/11/24 12:11 FiO2 Intake & Output 12/10/24 12/11/24 12/11/24 18:59 06:59 18:59 Intake Total 1500 200 Balance 1500 200 Weight 61.235 kg Intake: IV 200 Oral 1500 Other: Voiding Method Toilet Bedside Commode Bedside Commode # Voids 4 3 # Bowel Movements 1 - Labs CBC & Chem 7: 12/11/24 05:37 12/11/24 05:29 Labs: Abnormal Lab Results - Last 24 Hours (Table) 12/10/24 12/11/24 12/11/24 Range/Units 23:57 05:29 05:37 RBC 2.91 L (4.10-5.20) 10*6/uL Hgb 8.4 L (12.0-15.0) g/dL Hct 26.3 L (37.2-46.3) % MCHC 31.9 L (32.0-37.0) g/dL RDW 17.1 H (11.5-14.5) % Eosinophils # 0.02 L (0.04-0.35) 10*3/uL Carbon Dioxide 17 L (22-30) mmol/L BUN 35 H (7-17) mg/dL Creatinine 1.35 H (0.52-1.04) mg/dL POC Glucose (mg/dL) 69 L (70-110) mg/dL Microbiology - Last 24 Hours (Table) 12/07/24 18:10 Blood Culture - Preliminary Blood
--- NOTE | 2024-12-11 15:15 | P.DS ---
Providers Date of admission: 12/07/24 14:59 Attending physician: Jeremiah Millan MD Consults: 12/07/24 14:57 Consult Physician Routine Consulting Provider: [place] Forman Consult Reason/Comments: cancer Do you want consulting provider notified?: Yes 12/07/24 17:42 Consult Physician Routine Consulting Provider: Shanique Schaffer Consult Reason/Comments: Dysphagia Do you want consulting provider notified?: Yes 12/08/24 15:46 Consult Physician Routine Consulting Provider: David Wade Consult Reason/Comments: abnormal CT AP concerning for ascending biliary infection Do you want consulting provider notified?: Yes Primary care physician: oJvon Cal[facility] Course: Discharge Diagnosis: Intractable nausea and vomiting secondary to complete duodenal obstruction along the duodenal sweep secondary to mass likely pancreatic adenocarcinoma Pneumobilia likely due to ERCP Constipation resolved Hypochloremic hyponatremia AJAY likely due to dehydration, improving Hyperbilirubinemia elevated alk phos possibly related to underlying pancreatic malignancy Hypokalemia, resolved Normocytic anemia History of pancreatic cancer Hospital Course: 69 year old F with PMH of pancreatic CA with history of biliary stent presents to the ED. She reports undergoing chemotherapy approximately 3 weeks ago. Over the past 5 days she reports intractable nausea and profuse vomiting associated with decreased PO intake. She reports "gurgling" in her chest. She reports difficulty swallowing with food that seems to get stuck in her throat. She reports coughing up white foam. She had profound diarrhea 10 days ago, C. diff was positive, just finished taking 10 days of PO Vancomycin. In the ED she underwent extensive evaluation. BP 91/62, HR 105, T 97.6F, RR 20, 97% on RA. CBC, Coag panel, CMP significant for WBC 17.23, RBC 3.95, Hg 11.3, Hct 33.8, Na 134, Cl 81, bicarb 33, BUN 46, Cr 1.72, glu 162, T. Bili 1.6, alk phos 438. KUB no acute process. EKG sinus rhythm with RBBB. Patient is admitted for further workup and management. Started on IV hydration. CT AP performed showing pneumobilia with stent graft with inferior portion terminating near the duodenum possibly in the pancreatic parenchyma with air-fluid level, mid pancreatic body mass, diverticulosis, right posterior 7th rib subacute fracture. General surgery consulted. Patient does not have any abdominal pain at that time, no plan for surgical intervention., Changes likely related to recent ERCP. patient was taken for EGD on 12/11, was found to have complete duodenal obstruction along the duodenal sweep secondary to obstructing mass, NG was placed, GI recommended transfer to [facility], however, patient states that her current care is now provided at [facility], transfer center called, patient was accepted by her primary oncology surgeon Dr. Munoz. Patient seen and examined at bedside. Vital signs reviewed and stable. General: [Chronically ill-appearing Derm: Warm, dry Head: Atraumatic, normocephalic, symmetric Eyes: EOMI, no lid lag, anicteric sclera Mouth: No lip lesion, mucus membranes moist Cardiovascular: S1S2 reg, no murmur Lungs: Decreased bilateral breath sounds], no rhonchi, no rales, no accessory muscle use Abdominal: Soft, nontender to palpation distended, bowel sounds present, no guarding, no appreciable organomegaly Ext: No gross muscle atrophy, no edema, no contractures Neuro: CN II-XI grossly intact, no focal neuro deficits Psych: Alert, oriented, appropriate affect A total of 50 minutes of time were spent preparing this complex discharge summary. Patient was discharged on 12/11/2024. Patient Condition at Discharge: Fair Plan - Discharge Summary Discharge Rx Participant: No New Discharge Prescriptions: No Action droNABinol 5 mg PO HS Vancomycin HCl [Vancomycin HCl Oral Soln] 500 mg PO QID Ferrous Sulfate [Feosol] 325 mg PO DAILY polyethylene glycoL 3350 [Miralax] 17 gm PO DAILY PRN PRN Reason: Constipation Ondansetron Odt [Zofran Odt] 4 mg PO BID Omeprazole 40 mg PO BID Discharge Medication List Ferrous Sulfate [Feosol] 325 mg PO DAILY 12/07/24 [History] Omeprazole 40 mg PO BID 12/07/24 [History] Ondansetron Odt [Zofran Odt] 4 mg PO BID 12/07/24 [History] Vancomycin HCl [Vancomycin HCl Oral Soln] 500 mg PO QID 12/07/24 [History] droNABinol 5 mg PO HS 12/07/24 [History] polyethylene glycoL 3350 [Miralax] 17 gm PO DAILY PRN 12/07/24 [History] Follow up Appointment(s)/Referral(s): Jovon Decker MD [Primary Care Provider] - 1-2 days Montez Forman MD [STAFF PHYSICIAN] - 12/20/24 8:45 am
[2024-12-11 16:00] VITALS: BP 111/66; PULSE 69; TEMP 97.8
[2024-12-11 17:06] LABS: Glucose,Whole Blood 76 mg/dL (70-110)
[2024-12-12] MEDS ORDERED: ENOXAPARIN 40 MG/0.4 ML SYRINGE SQ SCH (09:00)
== END 2024-12-11 19:56 | disposition short-term general hospital (02) | DRG 375 ==
LOC: EC 11:12 → OBSVTOIN 14:59 → 5NMEDONC 14:59
PROVIDERS: ADMIT Family Medicine; ATTEND Family Medicine
PROC: 0D9780Z Drainage of Stomach, Pylorus with Drainage Device, Via Natural or Artificial Opening Endoscopic (ICD-10-PCS; principal; 2024-12-11 07:30)
DX: C78.4 Secondary malignant neoplasm of small intestine (principal); C25.9 Malignant neoplasm of pancreas, unspecified; K31.5 Obstruction of duodenum; N17.9 Acute kidney failure, unspecified; E87.1 Hypo-osmolality and hyponatremia; E87.3 Alkalosis; Z66 Do not resuscitate; R13.10 Dysphagia, unspecified; D64.9 Anemia, unspecified; N39.0 Urinary tract infection, site not specified; E86.0 Dehydration; G62.0 Drug-induced polyneuropathy; E80.6 Other disorders of bilirubin metabolism; I45.10 Unspecified right bundle-branch block; K21.00 Gastro-esophageal reflux disease with esophagitis, without bleeding; T45.1X5A Adverse effect of antineoplastic and immunosuppressive drugs, initial encounter; E87.6 Hypokalemia; K59.00 Constipation, unspecified; E87.8 Other disorders of electrolyte and fluid balance, not elsewhere classified; K57.30 Diverticulosis of large intestine without perforation or abscess without bleeding; Z79.899 Other long term (current) drug therapy; Z88.0 Allergy status to penicillin; Z96.89 Presence of other specified functional implants; Z96.651 Presence of right artificial knee joint
CPT/HCPCS: 36415; 43235; 71045; 74018; 74021; 74176; 80048; 80053; 81001; 83690; 83735; 85025; 85027; 87040; 93005; 96361; 96374; 99285